=== PATIENT | female | born 1985 | race Caucasian/White ===

== ENCOUNTER 2018-06-21 16:25 | Emergency (ER) | payer OTHER, SELFPAY ==
[2018-06-21 16:26] VITALS: BP 187/98; PULSE 127; RESP 22; TEMP 36.8; O2SAT 100; BMI 52.3
--- NOTE | 2018-06-21 16:53 | US_ITS ---
STUDY: VENOUS DOPPLER ULTRASOUND - BILATERAL LOWER EXTREMITIES REASON FOR EXAM: Female, 33 years old. Swelling TECHNIQUE: Ultrasound evaluation of the deep vein system to include christopher-scale imaging and compression was performed. Christopher-scale imaging and Doppler sonographic evaluation, including duplex spectral analysis and qualitative color flow sonography, was performed. COMPARISON: None. FINDINGS: RIGHT LEG Common Femoral Vein: Normal compression, spontaneity and augmentation. Normal color Doppler. Common Femoral Vein/Greater Saphenous Junction: Normal compression, spontaneity and augmentation. Normal color Doppler. Deep Femoral Vein: Normal compression, spontaneity and augmentation. Normal color Doppler. Femoral Proximal: Normal compression, spontaneity and augmentation. Normal color Doppler. Femoral Middle: Normal compression, spontaneity and augmentation. Normal color Doppler. Femoral Distal: Normal compression, spontaneity and augmentation. Normal color Doppler. Popliteal Vein: Normal compression, spontaneity and augmentation. Normal color Doppler. Posterior Tibial Vein: Normal compression, spontaneity and augmentation. Normal color Doppler. Peroneal Vein: Normal compression, spontaneity and augmentation. Normal color Doppler. LEFT LEG Common Femoral Vein: Normal compression, spontaneity and augmentation. Normal color Doppler. Common Femoral Vein/Greater Saphenous Junction: Normal compression, spontaneity and augmentation. Normal color Doppler. Deep Femoral Vein: Normal compression, spontaneity and augmentation. Normal color Doppler. Femoral Proximal: Normal compression, spontaneity and augmentation. Normal color Doppler. Femoral Middle: Normal compression, spontaneity and augmentation. Normal color Doppler. Femoral Distal: Normal compression, spontaneity and augmentation. Normal color Doppler. Popliteal Vein: Normal compression, spontaneity and augmentation. Normal color Doppler. Posterior Tibial Vein: Normal compression, spontaneity and augmentation. Normal color Doppler. Peroneal Vein: Normal compression, spontaneity and augmentation. Normal color Doppler. US/Venous Duplex Imag/Mayo Extrem IMPRESSION: Normal venous Doppler ultrasound of the bilateral lower extremities. Electronically Signed: Wayne Toribio MD at 18:33 EDT , Service support ,
--- NOTE | 2018-06-21 16:53 | ED.DCSUM_ITS ---
- ER Visit Summary Date of Service: 06/21/18 Chief Complaint: Lower extremity swelling History of Present Illness: The patient is a 33 F who is 5 weeks 5 days who presents for bilateral lower extremity swelling for 4 days. Patient states 4 days ago she was moving. Afterwards she noticed swelling in both calves. Since then it is involved her ankles and feet. It is tense and aching. She denies any shortness of breath, chest pain, fever, dizziness or lightheadedness, vomiting. She does have nausea associated with the . She has no history of DVT, PE, travel or surgery. She has been doing fertility treatments to get and has been on exogenous hormones. Patient denies history of hypertension or diabetes. Physical Examination: Vital signs: afebrile, hypertensive and tachycardia, no hypoxia on room air General: well nourished, well developed, in no distress Skin: warm, dry, no rash, no pallor HEENT: normocephalic and atraumatic; PERRL, EOMI, moist mucous membranes Cardiovascular: Tachycardic rate and rhythm without murmurs, 2+ pulses all dista l extremities Respiratory: No increased work of breathing, lungs are clear to auscultation bilaterally, no rales, rhonchi or wheezing Abdominal: Abdomen is soft, nontender with normoactive bowel sounds, no guarding or rebound, no masses MSK: Moves all extremities, no deformities, normal strength, bilateral lower extremity tenderness below the knees, no pitting edema, symmetric size of the calves, DP pulses are 2+ and symmetric, no erythema, palpable cords, negative Homans sign. Neuro: Awake and alert, oriented ?4. No facial droop, sensation and motor function intact and symmetric Test Results: Abnormal Lab Results 06/21/18 06/21/18 06/21/18 17:50 17:50 17:50 WBC 11.3 H RBC 4.38 Hgb 11.6 L Hct 35.9 L MCV 82.0 MCH 26.5 L MCHC 32.3 RDW 14.9 H RDW Differential 43.6 Plt Count 237 MPV 9.4 Immature Gran % (Auto) 0.300 Neut % (Auto) 69.0 Lymph % (Auto) 24.5 [place] % (Auto) 4.9 Eos % (Auto) 1.1 Baso % (Auto) 0.2 Absolute Neuts (auto) 7.8 H Absolute Lymphs (auto) 2.78 Total Counted Not Reportable Sodium 139 Potassium 3.5 Chloride 107 Carbon Dioxide 22.0 Anion Gap 10 BUN 6 L Creatinine 0.66 Estim Creat Clear Calc 102.16 Est GFR (MDRD) Af Amer 135 Est GFR (MDRD) Non-Af 111 BUN/Creatinine Ratio 9.1 L Glucose 84 Calcium 8.8 Total Bilirubin 0.40 AST 18 ALT 22 Alkaline Phosphatase 48 Total Protein 7.1 Albumin 3.4 Globulin 3.7 Albumin/Globulin Ratio 0.9 HCG, Quant 5647 H Urine Color Urine Clarity Urine pH Ur Specific [place] Urine Protein Urine Glucose (UA) Urine Ketones Urine Occult Blood Urine Nitrite Urine Bilirubin Urine Urobilinogen Ur Leukocyte Esterase Urine RBC Urine WBC Ur Squamous Epith Cells Urine Bacteria Urine Mucus 06/21/18 18:39 WBC RBC Hgb Hct MCV MCH MCHC RDW RDW Differential Plt Count MPV Immature Gran % (Auto) Neut % (Auto) Lymph % (Auto) [place] % (Auto) Eos % (Auto) Baso % (Auto) Absolute Neuts (auto) Absolute Lymphs (auto) Total Counted Sodium Potassium Chloride Carbon Dioxide Anion Gap BUN Creatinine Estim Creat Clear Calc Est GFR (MDRD) Af Amer Est GFR (MDRD) Non-Af BUN/Creatinine Ratio Glucose Calcium Total Bilirubin AST ALT Alkaline Phosphatase Total Protein Albumin Globulin Albumin/Globulin Ratio HCG, Quant Urine Color Yellow Urine Clarity Cloudy Urine pH 6.5 Ur Specific [place] 1.020 Urine Protein 30 H Urine Glucose (UA) Normal Urine Ketones 150 H Urine Occult Blood 25 H Urine Nitrite Negative Urine Bilirubin Negative Urine Urobilinogen 1 H Ur Leukocyte Esterase 100 H Urine RBC 0-5 SEEN Urine WBC 0-5 SEEN Ur Squamous Epith Cells 25-50 SEEN Urine Bacteria 4+ Urine Mucus 3+ Clinical Impression(s) from Imaging Studies Venous Duplex 06/21/18 16:53 IMPRESSION: Normal venous Doppler ultrasound of the bilateral lower extremities. Electronically Signed: Wayne Toribio MD at 18:33 EDT , Service support , Emergency Department Course and Treatment: Given patient's edema and use of exogenous hormones, ultrasounds were performed of the lower extremities. She is only 5 weeks and thus it would be unlikely to have preeclampsia or to have increased risk of venous thromboembolism due to . Ultrasounds were negative for DVT. Patient's labs showed normal renal function, normal electrolytes, normal hepatic function. Urine was grossly contaminated with a large number of epithelial cells and did have bacteria, however this is most likely urogenital contamination, and that she was not started empirically on antibiotics for asymptomatic bacteriuria in . A culture is pending and she will be notified if there is concern for active urine infection. Beta hCG was at an expected range for her dating, and thus there is no suspicion at this time for a molar . Patient is to follow-up with her doctor to discuss her blood pressure, as it was significantly elevated when she first arrived, however she had just walked up a hill and has poor conditioning. At time of discharge it was 130/ S. Patient was discharged home and is to follow-up with primary care doctor and OB for further evaluation and management. Treatment Plan: [] Disposition: [] Impression: Bilateral lower extremity edema, first trimester This note was generated with [employer] dictation software. It may contain incorrect words, spelling, and punctuation that were not noted in review of the chart prior to signing ED Disposition - Plan for ED Patient: Disposition: Home or Assisted Living Chief Complaint: Edema Instructions: : Your First Trimester Changes, ED Leg Swelling Bilateral, ED Care Referrals: Elisa Childress MD [STAFF PHYSICIAN] - As soon as possible Palomo Saucedo III, MD [Primary Care Provider] - Additional Instructions: Please follow-up with your family doctor and Dr. Braxton to discuss your blood pressure today and the swelling in your legs. Drink plenty of fluids to stay hydrated and keep your legs elevated as much as possible. If you have any worsening of your condition or any new concerning symptoms, please return immediately to the emergency department for another evaluation.
[2018-06-21 17:30] VITALS: BP 141/94; PULSE 117; RESP 14; O2SAT 98
--- NOTE | 2018-06-21 17:52 | ED.RN ---
MULTIPLE ATTEMPTS NEEDED TO AQUIRE BLOOD. MADE AWARE. PT TAKEN TO ULTRASOUND. [id number]
[2018-06-21 17:57] LABS: Absolute Lymphocyte Count 2.78 X10^3/ul (0.83-4.51); Absolute Neutrophil Count 7.8 X10^3/uL (2.0-7.7); Basophil# 0.02 X10^3/uL; Basophil% 0.2 % (0-1); Eosinophil# 0.12 X10^3/uL; Eosinophils% 1.1 % (0-5); Hematocrit 35.9 % (37-47); Hemoglobin 11.6 g/dl (12.0-15.0); Lymphocyte # 2.78 X10^3/ul (4.0); Lymphocyte % 24.5 % (19-41); Mean Corp Hgb Conc 32.3 g/gl (32-36); Mean Corpuscular Hgb 26.5 pg (27.0-32.0); Mean Platelet Vol. 9.4 fl (6.2-12.0); Monocyte# 0.55 X10^3/uL; Monocyte% 4.9 % (0-10); Neutrophil # 7.84 X10^3/uL (2.7-7.7); POSITIVE COUNT NO; POSITIVE DIFFERENTIAL NO; POSITIVE MORPHOLOGY NO; Platelet Count 237 K/mm3 (150-450); RBC Distribution Width CV 14.9 % (11.6-14.6); RBC Distribution Width SD 43.6 fl (35.1-43.9); Red Blood Count 4.38 M/mm3 (4.2-5.4); White Blood Count 11.3 K/mm3 (4.4-11.0)
[2018-06-21 18:21] LABS: ALB/GLOB Ratio 0.9 RATIO (0.9-2.4); AST(SGOT) 18 U/L (15-37); Alanine Aminotransfer ALT/SGPT 22 U/L (13-56); Albumin, Serum 3.4 g/dL (3.2-5.0); Alkaline Phosphatase 48 U/L (45-117); Anion Gap 10 (5-15); BUN 6 mg/dL (7-18); BUN/Creat Ratio 9.1 RATIO (10-20); Calcium,Total 8.8 mg/dL (8.5-10.1); Chloride 107 mmol/L (98-107); Creatinine, Serum 0.66 mg/dL (0.55-1.02); EST Glomerular Filtration Rate 111 mL/min (>60); Est Glom Filt Rate - Afr Amer 135 mL/min (>60); Estimated Creatinine Clearance 102.16 ml/min; Globulin 3.7 g/dL (2.2-4.2); Glucose 84 mg/dL (74-106); Potassium 3.5 mmol/L (3.5-5.1); Protein, Total 7.1 g/dL (6.4-8.2); Sodium Level 139 mmol/L (136-145)
[2018-06-21 18:41] LABS: hCG Titer Quant., Serum 5647 mIU/mL (<9 non-preg)
[2018-06-21 18:51] LABS: Color, Urine Yellow (Yellow); Glucose, Dipstick Normal (Normal); Leukocyte Esterase-Dipstick 100 /ul (Negative); Nitrite-Dipstick Negative (Negative); Occult Blood-Urine 25 /ul (Negative); Protein-Dipstick 30 mg/dl (Negative); Urine Bilirubin Dipstick Negative (Negative); Urine Clarity Cloudy (Clear); Urine Urobilinogen 1 mg/dl (Normal); Urine pH 6.5 (5.0 - 8.0)
[2018-06-21 19:02] LABS: Ketone-Dipstick 150 mg/dl (Negative)
[2018-06-21 19:28] LABS: Bacteria 4+ /hpf (None Seen); Mucous, Urine 3+ /hpf (<or=2+); Red Blood Cells-Urine 0-5 SEEN /hpf (0-5); Squamous Epithelial Cells - UA 25-50 SEEN /hpf (5-10); White Blood Cells 0-5 SEEN /hpf (0-5)
--- NOTE | 2018-06-21 20:27 | ED.DEP ---
ED Disposition - Plan for ED Patient: Disposition: Home or Assisted Living Chief Complaint: Edema Instructions: ED Leg Swelling Bilateral, : Your First Trimester Changes, ED Care Referrals: Palomo Saucedo III, MD [Primary Care Provider] - Elisa Childress MD [STAFF PHYSICIAN] - As soon as possible Additional Instructions: Please follow-up with your family doctor and Dr. Braxton to discuss your blood pressure today and the swelling in your legs. Drink plenty of fluids to stay hydrated and keep your legs elevated as much as possible. If you have any worsening of your condition or any new concerning symptoms, please return immediately to the emergency department for another evaluation.
[2018-06-21 20:44] VITALS: BP 162/90; PULSE 110; RESP 14; O2SAT 98
== END 2018-06-21 20:45 | disposition home or self-care (01) ==
PROVIDERS: Emergency Provider Emergency Medicine; Family Provider Family Medicine; PCP Family Medicine
DX: O12.01 Gestational edema, first trimester (principal); O99.211 Obesity complicating pregnancy, first trimester; E66.9 Obesity, unspecified; Z3A.01 Less than 8 weeks gestation of pregnancy
CPT/HCPCS: 36415; 80053; 81001; 84702; 85025; 87086; 87088; 93970; 99283; A4216

== ENCOUNTER 2018-08-14 09:07 | Emergency (ER) | payer OTHER, SELFPAY ==
[2018-08-14 09:10] VITALS: BP 156/92; PULSE 102; RESP 18; TEMP 37.2; O2SAT 97; BMI 49.4
--- NOTE | 2018-08-14 09:26 | ED.VISSUMM ---
- ER Visit Summary Date of Service: 08/14/18 Chief Complaint: Nausea and vomiting History of Present Illness: The patient is a 33 F has medical history of hypothyroidism. Currently she is 13 weeks . . Due date 02/14/2019. -induced hypertension. She states for the last week she has had nausea and vomiting in the morning. She denies diarrhea or fever. No dysuria. The last 2 days she has been more frequently vomiting. Denies any abdominal pain. Physical Examination: Vital signs stable afebrile. Initial blood H EENT exam unremarkable. Neck nontender. Lungs clear to auscultation bilaterally. Heart regular rate and rhythm no murmur. Rate about 100. Abdomen is soft. Nontender. Nondistended. Normal bowel sounds. No peritoneal signs. Patient is moving all 4 extremities. They are neurovascularly intact. Calves are nontender without edema. Neurologically she is awake alert with no Test Results: None Emergency Department Course and Treatment: Treated with IV fluids and Zofran. P.o. challenge. Treatment Plan: Zofran at home for nausea. Follow-up with her VASCULAR SONOGRAPHER. Disposition: Discharge Impression: Nausea and vomiting 13 weeks . Hx of -induced hypertension This note was generated with [employer] dictation software. It may contain incorrect words, spelling, and punctuation that were not noted in review of the chart prior to signing ED Disposition - Plan for ED Patient: Chief Complaint: Nausea/Vomiting Referrals: Palomo Saucedo III, MD [Primary Care Provider] -
--- NOTE | 2018-08-14 09:29 | ED.DCSUM_ITS ---
- ER Visit Summary Date of Service: 08/14/18 Chief Complaint: Nausea and vomiting History of Present Illness: The patient is a 33 F has medical history of hypothyroidism. Currently she is 13 weeks . . Due date 02/14/2019. -induced hypertension. She states for the last week she has had nausea and vomiting in the morning. She denies diarrhea or fever. No dysuria. The last 2 days she has been more frequently vomiting. Denies any abdominal pain. Physical Examination: Vital signs stable afebrile. Initial blood H EENT exam unremarkable. Neck nontender. Lungs clear to auscultation bilaterally. Heart regular rate and rhythm no murmur. Rate about 100. Abdomen is soft. Nontender. Nondistended. Normal bowel sounds. No peritoneal signs. Patient is moving all 4 extremities. They are neurovascularly intact. Calves are nontender without edema. Neurologically she is awake alert with no Test Results: None Emergency Department Course and Treatment: Treated with IV fluids and Zofran. P.o. challenge. Treatment Plan: Zofran at home for nausea. Follow-up with her COMMUNITY DEVELOPMENT MANAGER. Disposition: Discharge Impression: Nausea and vomiting 13 weeks . Hx of -induced hypertension This note was generated with [employer] dictation software. It may contain incorrect words, spelling, and punctuation that were not noted in review of the chart prior to signing ED Disposition - Plan for ED Patient: Chief Complaint: Nausea/Vomiting Referrals: Palomo Saucedo III, MD [Primary Care Provider] -
--- NOTE | 2018-08-14 09:29 | ED.DEP ---
ED Disposition - Plan for ED Patient: Disposition: Home or Assisted Living Chief Complaint: Nausea/Vomiting Instructions: ED Nausea Vomiting Prescriptions: Ondansetron [Zofran Odt] 4 mg PO Q4H PRN PRN #14 tab.rapdis PRN Reason: Nausea Referrals: Palomo Saucedo III, MD [Primary Care Provider] - Additional Instructions: Plenty of fluids and rest. [place] diet and increase slowly. Zofran as needed for nausea. You may swallow it or hold it under your tongue and let it dissolve.
[2018-08-14] MEDS: 0.9% Normal Saline 1,000 ML 1000 ML IV (09:47)
[2018-08-14] MEDS: Ondansetron 4 MG/2 ML Vial IV ×2 (09:47→11:59)
[2018-08-14 11:04] VITALS: BP 132/76; PULSE 89; O2SAT 100
[2018-08-14 13:07] VITALS: RESP 15
== END 2018-08-14 13:07 | disposition home or self-care (01) ==
PROVIDERS: Emergency Provider Emergency Medicine; Family Provider Family Medicine; PCP Family Medicine
DX: O21.9 Vomiting of pregnancy, unspecified (principal); O99.281 Endocrine, nutritional and metabolic diseases complicating pregnancy, first trimester; E03.9 Hypothyroidism, unspecified; O10.911 Unspecified pre-existing hypertension complicating pregnancy, first trimester; Z3A.13 13 weeks gestation of pregnancy; Z79.899 Other long term (current) drug therapy
CPT/HCPCS: 96361; 96374; 96376; 99285; J7030; A4216; J2405

== ENCOUNTER → 2018-11-14 11:18 | Outpatient (CLI) | payer OTHER, SELFPAY ==
[2018-11-14 18:16] LABS: Chlamydia Trachomatis by PCR Negative (Negative); Neisserai gonorrhoeae by PCR Negative (Negative); Probe Check PASS; Sample Adequacy Control PASS; Specimen Processing Control PASS
== END ==
PROVIDERS: Visit Provider Obstetrics & Gynecology
DX: Z34.82 Encounter for supervision of other normal pregnancy, second trimester (principal); Z36.89 Encounter for other specified antenatal screening
CPT/HCPCS: 36415; 86900; 87491; 87591

== ENCOUNTER 2019-01-08 21:25 | Outpatient (CLI) | payer OTHER, SELFPAY ==
[2019-01-08 21:50] VITALS: BMI 48.4
[2019-01-08 22:41] LABS: Absolute Lymphocyte Count 3.26 X10^3/ul (0.83-4.51); Absolute Neutrophil Count 8.3 X10^3/uL (2.0-7.7); Basophil# 0.02 X10^3/uL; Basophil% 0.2 % (0-1); Eosinophils% 0.8 % (0-5); Hemoglobin 12.3 g/dl (12.0-15.0); Lymphocyte # 3.26 X10^3/ul (4.0); Lymphocyte % 26.5 % (19-41); Mean Corp Hgb Conc 33.2 g/gl (32-36); Mean Corpuscular Hgb 27.5 pg (27.0-32.0); Mean Corpuscular Volume 82.8 fL (81-99); Mean Platelet Vol. 10.7 fl (6.2-12.0); Monocyte# 0.58 X10^3/uL; Monocyte% 4.7 % (0-10); Neutrophil % 67.6 % (47-70); POSITIVE COUNT NO; POSITIVE DIFFERENTIAL NO; POSITIVE MORPHOLOGY NO; Platelet Count 232 K/mm3 (150-450); RBC Distribution Width CV 14.9 % (11.6-14.6); RBC Distribution Width SD 45.2 fl (35.1-43.9); Red Blood Count 4.47 M/mm3 (4.2-5.4); White Blood Count 12.3 K/mm3 (4.4-11.0)
[2019-01-08 23:10] LABS: ALB/GLOB Ratio 0.7 RATIO (0.9-2.4); AST(SGOT) 19 U/L (15-37); Alanine Aminotransfer ALT/SGPT 12 U/L (13-56); Albumin, Serum 2.6 g/dL (3.2-5.0); Alkaline Phosphatase 104 U/L (45-117); Anion Gap 7 (5-15); BUN 9 mg/dL (7-18); BUN/Creat Ratio 14.2 RATIO (10-20); Calcium,Total 8.7 mg/dL (8.5-10.1); Chloride 110 mmol/L (98-107); Creatinine, Serum 0.64 mg/dL (0.55-1.02); EST Glomerular Filtration Rate 115 mL/min (>60); Est Glom Filt Rate - Afr Amer 140 mL/min (>60); Estimated Creatinine Clearance 105.36 ml/min; Globulin 3.8 g/dL (2.2-4.2); Glucose 114 mg/dL (74-106); Potassium 4.3 mmol/L (3.5-5.1); Protein, Total 6.4 g/dL (6.4-8.2); Protein, Urine (Random) 21.5 mg/dL (<11.9); Protein:Creat Ratio 126 mg/g CRE (0-200); Sodium Level 137 mmol/L (136-145); Uric Acid 4.2 mg/dL (2.6-6.0)
[2019-01-08] MEDS: Labetalol 100 MG Tablet PO (23:28)
--- NOTE | 2019-01-12 12:39 | OB.TRI.NOTE ---
- Problem List (1) Chronic hypertension affecting Status: Chronic History of Present Illness Date of Service: 01/08/19 Was patient seen by the physician?: No Reason For Visit: ELEVATED BLOOD PRESSURE Date of Service: 01/08/19 Final BOOGIE: 02/19/19 Gestational age: 34 Weeks and 4 Days History of Present Illness: Presented to L&D with complaint of elevated BP at home of 184/116. Patient took dose of Labetolo 100mg PO and rechecked in an hour and decreased to 170/100. To L&D for evaluation. Upon arrival BP elevated. Denies any headaches, visual changes, scotoma, chest pain, SOB, RUQ abdominal pain, or contractions. Allergies amoxicillin [Amoxicillin] Allergy (Verified 01/08/19 21:51) Rash Iodinated Contrast- Oral and IV Dye [DYEE] Allergy (Verified 01/08/19 21:51) Anaphylaxis codeine Adverse Reaction (Verified 01/08/19 21:51) Upset Stomach erythromycin base [Erythromycin Base] Adverse Reaction (Verified 01/08/19 21:51) Vomiting Laboratory Studies: Laboratory Tests 01/08/19 01/08/19 01/08/19 Range/Units 22:30 22:30 22:30 WBC 12.3 H (4.4-11.0) K/mm3 RBC 4.47 (4.2-5.4) M/mm3 Hgb 12.3 (12.0-15.0) g/dl Hct 37.0 (37-47) % MCV 82.8 (81-99) fL MCH 27.5 (27.0-32.0) pg MCHC 33.2 (32-36) g/gl RDW 14.9 H (11.6-14.6) % RDW Differential 45.2 H (35.1-43.9) fl Plt Count 232 (150-450) K/mm3 MPV 10.7 (6.2-12.0) fl Immature Gran % (Auto) 0.200 (0.0-0.9) % Neut % (Auto) 67.6 (47-70) % Lymph % (Auto) 26.5 (19-41) % [place] % (Auto) 4.7 (0-10) % Eos % (Auto) 0.8 (0-5) % Baso % (Auto) 0.2 (0-1) % Absolute Neuts (auto) 8.3 H (2.0-7.7) X10^3/uL Absolute Lymphs (auto) 3.26 (0.83-4.51) X10^3/ul Total Counted Not Reportable Sodium 137 (136-145) mmol/L Potassium 4.3 (3.5-5.1) mmol/L Chloride 110 H (98-107) mmol/L Carbon Dioxide 20.0 L (21.0-32.0) mmol/L Anion Gap 7 (5-15) BUN 9 (7-18) mg/dL Creatinine 0.64 (0.55-1.02) mg/dL Estim Creat Clear Calc 105.36 ml/min Est GFR (MDRD) Af Amer 140 (>60) mL/min Est GFR (MDRD) Non-Af 115 (>60) mL/min BUN/Creatinine Ratio 14.2 (10-20) RATIO Glucose 114 H (74-106) mg/dL Uric Acid 4.2 (2.6-6.0) mg/dL Calcium 8.7 (8.5-10.1) mg/dL Total Bilirubin 0.20 (0.20-1.00) mg/dL AST 19 (15-37) U/L ALT 12 L (13-56) U/L Alkaline Phosphatase 104 (45-117) U/L Total Protein 6.4 (6.4-8.2) g/dL Albumin 2.6 L (3.2-5.0) g/dL Globulin 3.8 (2.2-4.2) g/dL Albumin/Globulin Ratio 0.7 L (0.9-2.4) RATIO U Random Total Protein 21.5 H (<11.9) mg/dL Urine Creatinine 171.00 (NO RANGE EST.) mg/dL Protein/Creatinin Ratio 126 (0-200) mg/g CRE NST - FHR Rate Baby A Baseline: 145 Variability:: Moderate Accelerations:: 15 x 15 Decelerations:: None FHR Category:: Category I Uterine Activity:: Uterine irriabiltiy. Impression/Plan P: 1) BP return to non severe range without intervention. Labetalol 100mg PO once given. 2) Pre-e labs normal. Reviewed signs of Pre-e 3) To follow up in am at office. Consulted and agreed with plan. To take BP in am and take morning dose.
== END 2019-01-09 | disposition home or self-care (01) ==
LOC: WPOUT 21:37 → WP 21:38
PROVIDERS: Advanced Practice Midwife; Family Provider Family Medicine; PCP Family Medicine; Referring Provider Obstetrics & Gynecology; Visit Provider Obstetrics & Gynecology
DX: O16.3 Unspecified maternal hypertension, third trimester (principal); Z3A.34 34 weeks gestation of pregnancy
CPT/HCPCS: 36415; 59025; 59050; 80053; 82570; 84156; 84550; 85025; 99218; G0378

== ENCOUNTER 2019-01-12 19:15 | Outpatient (CLI) | payer OTHER, SELFPAY ==
[2019-01-12 20:08] VITALS: BMI 47.8
[2019-01-12 20:14] LABS: Protein, Urine (Random) 18.7 mg/dL (<11.9); Protein:Creat Ratio 168 mg/g CRE (0-200)
[2019-01-12 20:24] LABS: Hematocrit 37.6 % (37-47); Hemoglobin 12.9 g/dl (12.0-15.0); Mean Corp Hgb Conc 34.3 g/gl (32-36); Mean Corpuscular Hgb 27.6 pg (27.0-32.0); Mean Corpuscular Volume 80.3 fL (81-99); Mean Platelet Vol. 11.1 fl (6.2-12.0); Platelet Count 299 K/mm3 (150-450); RBC Distribution Width CV 14.8 % (11.6-14.6); RBC Distribution Width SD 43.2 fl (35.1-43.9); Red Blood Count 4.68 M/mm3 (4.2-5.4); White Blood Count 12.4 K/mm3 (4.4-11.0)
[2019-01-12 20:26] LABS: Scan Indicated on CBC? Y/N NO
[2019-01-12 20:29] LABS: ALB/GLOB Ratio 0.7 RATIO (0.9-2.4); AST(SGOT) 35 U/L (15-37); Alanine Aminotransfer ALT/SGPT 14 U/L (13-56); Albumin, Serum 2.8 g/dL (3.2-5.0); Alkaline Phosphatase 111 U/L (45-117); Anion Gap 9 (5-15); BUN 10 mg/dL (7-18); BUN/Creat Ratio 16.3 RATIO (10-20); Calcium,Total 9.3 mg/dL (8.5-10.1); Chloride 105 mmol/L (98-107); Creatinine, Serum 0.62 mg/dL (0.55-1.02); EST Glomerular Filtration Rate 120 mL/min (>60); Est Glom Filt Rate - Afr Amer 145 mL/min (>60); Estimated Creatinine Clearance 108.76 ml/min; Globulin 4.1 g/dL (2.2-4.2); Glucose 96 mg/dL (74-106); Potassium 4.9 mmol/L (3.5-5.1); Protein, Total 6.9 g/dL (6.4-8.2); Sodium Level 134 mmol/L (136-145); Uric Acid 4.4 mg/dL (2.6-6.0)
--- NOTE | 2019-02-02 09:08 | OB.TRI.NOTE ---
History of Present Illness Date of Service: 01/12/19 Was patient seen by the physician?: No Reason For Visit: RULE OUT PRE E Allergies amoxicillin [Amoxicillin] Allergy (Verified 01/29/19 21:02) Rash Iodinated Contrast- Oral and IV Dye [DYEE] Allergy (Verified 01/29/19 21:02) Anaphylaxis codeine Adverse Reaction (Verified 01/29/19 21:02) Upset Stomach erythromycin base [Erythromycin Base] Adverse Reaction (Verified 01/29/19 21:02) Vomiting - Pertinent Past Medical History Medical History: Past Medical History (Last Updated 01/29/19 @ 16:24 by Elisa Childress MD) Obesity affecting in third trimester Laboratory Studies: Laboratory Tests 01/12/19 01/12/19 01/12/19 Range/Units 19:45 19:45 19:45 WBC 12.4 H (4.4-11.0) K/mm3 RBC 4.68 (4.2-5.4) M/mm3 Hgb 12.9 (12.0-15.0) g/dl Hct 37.6 (37-47) % MCV 80.3 L (81-99) fL MCH 27.6 (27.0-32.0) pg MCHC 34.3 (32-36) g/gl RDW 14.8 H (11.6-14.6) % RDW Differential 43.2 (35.1-43.9) fl Plt Count 299 (150-450) K/mm3 MPV 11.1 (6.2-12.0) fl Sodium 134 L (136-145) mmol/L Potassium 4.9 (3.5-5.1) mmol/L Chloride 105 (98-107) mmol/L Carbon Dioxide 20.0 L (21.0-32.0) mmol/L Anion Gap 9 (5-15) BUN 10 (7-18) mg/dL Creatinine 0.62 (0.55-1.02) mg/dL Estim Creat Clear Calc 108.76 ml/min Est GFR (MDRD) Af Amer 145 (>60) mL/min Est GFR (MDRD) Non-Af 120 (>60) mL/min BUN/Creatinine Ratio 16.3 (10-20) RATIO Glucose 96 (74-106) mg/dL Uric Acid 4.4 (2.6-6.0) mg/dL Calcium 9.3 (8.5-10.1) mg/dL Total Bilirubin 0.30 (0.20-1.00) mg/dL AST 35 (15-37) U/L ALT 14 (13-56) U/L Alkaline Phosphatase 111 (45-117) U/L Total Protein 6.9 (6.4-8.2) g/dL Albumin 2.8 L (3.2-5.0) g/dL Globulin 4.1 (2.2-4.2) g/dL Albumin/Globulin Ratio 0.7 L (0.9-2.4) RATIO U Random Total Protein 18.7 H (<11.9) mg/dL Urine Creatinine 111.00 (NO RANGE EST.) mg/dL Protein/Creatinin Ratio 168 (0-200) mg/g CRE Impression/Plan NST for chronic hypertension in
== END 2019-01-12 21:20 | disposition home or self-care (01) ==
LOC: WPOUT 19:26 → WP 19:26
PROVIDERS: Family Provider Family Medicine; PCP Family Medicine; Referring Provider Obstetrics & Gynecology; Visit Provider Obstetrics & Gynecology
DX: O16.9 Unspecified maternal hypertension, unspecified trimester (principal); Z3A.00 Weeks of gestation of pregnancy not specified
CPT/HCPCS: 36415; 59025; 59050; 80053; 82570; 84156; 84550; 85027; 99218; G0378

== ENCOUNTER 2019-01-13 11:37 | Outpatient (CLI) | payer OTHER, SELFPAY ==
[2019-01-12 20:08] VITALS: BMI 47.8
[2019-01-13 11:41] VITALS: BMI 47.6
[2019-01-13] MEDS: Betamethasone/Betamethasone 30 MG/5 ML Vial 12 MG IM (12:05)
--- NOTE | 2019-01-13 12:14 | NURSING ---
here for second celestone 12 mg im injection as ordered. BP 129/80 P 91 R 16 T 98.8 FHR 145
--- NOTE | 2019-01-16 07:51 | OB.TRI.NOTE ---
History of Present Illness Date of Service: 01/13/19 Was patient seen by the physician?: No Reason For Visit: INJECTION Date of Service: 01/13/19 Allergies amoxicillin [Amoxicillin] Allergy (Verified 01/13/19 11:45) Rash Iodinated Contrast- Oral and IV Dye [DYEE] Allergy (Verified 01/13/19 11:45) Anaphylaxis codeine Adverse Reaction (Verified 01/13/19 11:45) Upset Stomach erythromycin base [Erythromycin Base] Adverse Reaction (Verified 01/13/19 11:45) Vomiting Impression/Plan 33yo here for second dose of celestone- Uncontrolled CHTN - gestation 1) celestone IM #2 injection given
== END 2019-01-13 12:10 | disposition home or self-care (01) ==
LOC: WPOUT 11:37 → WP 11:38
PROVIDERS: Family Provider Family Medicine; PCP Family Medicine; Referring Provider Obstetrics & Gynecology; Visit Provider Obstetrics & Gynecology
DX: O16.9 Unspecified maternal hypertension, unspecified trimester (principal); Z3A.00 Weeks of gestation of pregnancy not specified
CPT/HCPCS: 96372; 99218; G0378; J0702

== ENCOUNTER 2019-01-17 05:05 | Outpatient (CLI) | payer OTHER, SELFPAY ==
[2019-01-17 05:33] VITALS: BMI 48.9
[2019-01-17 06:31] LABS: Protein, Urine (Random) 38.9 mg/dL (<11.9); Protein:Creat Ratio 173 mg/g CRE (0-200)
[2019-01-17 06:50] LABS: Hematocrit 36.6 % (37-47); Hemoglobin 12.4 g/dl (12.0-15.0); Mean Corp Hgb Conc 33.9 g/gl (32-36); Mean Corpuscular Volume 79.7 fL (81-99); Mean Platelet Vol. 11.1 fl (6.2-12.0); Platelet Count 247 K/mm3 (150-450); RBC Distribution Width CV 14.7 % (11.6-14.6); RBC Distribution Width SD 41.8 fl (35.1-43.9); Red Blood Count 4.59 M/mm3 (4.2-5.4); White Blood Count 11.7 K/mm3 (4.4-11.0)
[2019-01-17 06:52] LABS: Scan Indicated on CBC? Y/N NO
[2019-01-17 06:56] LABS: International Normalized Ratio 0.9; Prothrombin Time (Protime)PT. 11.9 SECONDS (11.7-14.9)
[2019-01-17 06:57] LABS: Partial Thromboplast Time 24.7 Seconds (24.1-36.2)
[2019-01-17 07:02] LABS: AST(SGOT) 10 U/L (15-37); Alanine Aminotransfer ALT/SGPT 14 U/L (13-56); Creatinine, Serum 0.62 mg/dL (0.55-1.02); EST Glomerular Filtration Rate 118 mL/min (>60); Est Glom Filt Rate - Afr Amer 143 mL/min (>60); Estimated Creatinine Clearance 103.98 ml/min; Uric Acid 5.2 mg/dL (2.6-6.0)
--- NOTE | 2019-01-18 08:47 | OB.TRI.NOTE ---
History of Present Illness Date of Service: 01/17/19 Was patient seen by the physician?: No Reason For Visit: r/o PRE E, elevated BPs Date of Service: 01/17/19 Allergies amoxicillin [Amoxicillin] Allergy (Verified 01/17/19 05:23) Rash Iodinated Contrast- Oral and IV Dye [DYEE] Allergy (Verified 01/13/19 11:45) Anaphylaxis codeine Adverse Reaction (Verified 01/13/19 11:45) Upset Stomach erythromycin base [Erythromycin Base] Adverse Reaction (Verified 01/13/19 11:45) Vomiting Laboratory Studies: Laboratory Tests 01/17/19 01/17/19 01/17/19 Range/Units 06:35 06:35 06:35 WBC 11.7 H (4.4-11.0) K/mm3 RBC 4.59 (4.2-5.4) M/mm3 Hgb 12.4 (12.0-15.0) g/dl Hct 36.6 L (37-47) % MCV 79.7 L (81-99) fL MCH 27.0 (27.0-32.0) pg MCHC 33.9 (32-36) g/gl RDW 14.7 H (11.6-14.6) % RDW Differential 41.8 (35.1-43.9) fl Plt Count 247 (150-450) K/mm3 MPV 11.1 (6.2-12.0) fl PT 11.9 (11.7-14.9) SECONDS INR 0.9 APTT 24.7 (24.1-36.2) Seconds Creatinine 0.62 (0.55-1.02) mg/dL Estim Creat Clear Calc 103.98 ml/min Est GFR (MDRD) Af Amer 143 (>60) mL/min Est GFR (MDRD) Non-Af 118 (>60) mL/min Uric Acid 5.2 (2.6-6.0) mg/dL AST 10 L (15-37) U/L ALT 14 (13-56) U/L U Random Total Protein (<11.9) mg/dL Urine Creatinine (NO RANGE EST.) mg/dL Protein/Creatinin Ratio (0-200) mg/g CRE 01/17/19 Range/Units 06:00 WBC (4.4-11.0) K/mm3 RBC (4.2-5.4) M/mm3 Hgb (12.0-15.0) g/dl Hct (37-47) % MCV (81-99) fL MCH (27.0-32.0) pg MCHC (32-36) g/gl RDW (11.6-14.6) % RDW Differential (35.1-43.9) fl Plt Count (150-450) K/mm3 MPV (6.2-12.0) fl PT (11.7-14.9) SECONDS INR APTT (24.1-36.2) Seconds Creatinine (0.55-1.02) mg/dL Estim Creat Clear Calc ml/min Est GFR (MDRD) Af Amer (>60) mL/min Est GFR (MDRD) Non-Af (>60) mL/min Uric Acid (2.6-6.0) mg/dL AST (15-37) U/L ALT (13-56) U/L U Random Total Protein 38.9 H (<11.9) mg/dL Urine Creatinine 225.00 (NO RANGE EST.) mg/dL Protein/Creatinin Ratio 173 (0-200) mg/g CRE NST - FHR Rate Baby A Baseline: 140 Variability:: Moderate Accelerations:: 15 x 15 Decelerations:: None NST Reactive:: Yes FHR Category:: Category I Uterine Activity:: irregular Impression/Plan 33yo @35.2 wks CHTN, without pre E 1) PRE E labs wnl 2) Follow up in office as scheduled today
== END 2019-01-17 07:30 | disposition home or self-care (01) ==
LOC: WPOUT 05:14 → WP 05:15
PROVIDERS: Family Provider Family Medicine; PCP Family Medicine; Visit Provider Obstetrics & Gynecology
DX: O16.3 Unspecified maternal hypertension, third trimester (principal); Z3A.35 35 weeks gestation of pregnancy
CPT/HCPCS: 36415; 59025; 59050; 82565; 82570; 84156; 84450; 84460; 84550; 85027; 85610; 85730; 99218; G0378

== ENCOUNTER 2019-01-28 10:20 | Outpatient (CLI) | payer OTHER, SELFPAY ==
[2019-01-28 10:59] LABS: Hemoglobin 12.6 g/dl (12.0-15.0); Mean Corp Hgb Conc 34.1 g/gl (32-36); Mean Corpuscular Hgb 27.2 pg (27.0-32.0); Mean Corpuscular Volume 79.9 fL (81-99); Mean Platelet Vol. 11.6 fl (6.2-12.0); Platelet Count 231 K/mm3 (150-450); RBC Distribution Width CV 14.9 % (11.6-14.6); RBC Distribution Width SD 42.8 fl (35.1-43.9); Red Blood Count 4.63 M/mm3 (4.2-5.4); White Blood Count 10.7 K/mm3 (4.4-11.0)
[2019-01-28 11:00] LABS: Scan Indicated on CBC? Y/N NO
[2019-01-28 11:13] LABS: AST(SGOT) 10 U/L (15-37); Alanine Aminotransfer ALT/SGPT 10 U/L (13-56); Creatinine, Serum 0.56 mg/dL (0.55-1.02); EST Glomerular Filtration Rate 134 mL/min (>60); Est Glom Filt Rate - Afr Amer 162 mL/min (>60); Protein, Urine (Random) 35.5 mg/dL (<11.9); Protein:Creat Ratio 152 mg/g CRE (0-200)
[2019-01-28 11:26] VITALS: BMI 48.9
--- NOTE | 2019-01-31 07:56 | OB.TRI.NOTE ---
- Problem List (1) 36 weeks gestation of Status: Acute (2) Malaise Status: Acute (3) Nausea & vomiting Status: Acute (4) Headache Status: Acute (5) Chronic hypertension affecting Status: Chronic History of Present Illness Date of Service: 01/28/19 Was patient seen by the physician?: No Reason For Visit: R/O [facility] Date of Service: 01/28/19 Final BOOGIE: 02/19/19 Gestational age: 37 Weeks and 2 Days History of Present Illness: who presented at 36 weeks for rule out pre-e. H/o cHTN on labetalol. +Mild RODRÍGUEZ that she did not take anything for. +Malaise and emesis after taking her morning Labetalol. No vision changes or RUQ pain. No ctx, vb, lof. +FM Allergies amoxicillin [Amoxicillin] Allergy (Verified 01/29/19 21:02) Rash Iodinated Contrast- Oral and IV Dye [DYEE] Allergy (Verified 01/29/19 21:02) Anaphylaxis codeine Adverse Reaction (Verified 01/29/19 21:02) Upset Stomach erythromycin base [Erythromycin Base] Adverse Reaction (Verified 01/29/19 21:02) Vomiting - Pertinent Past Medical History Medical History: Past Medical History (Last Updated 01/29/19 @ 16:24 by Elisa Childress MD) Obesity affecting in third trimester Laboratory Studies: Laboratory Tests 01/28/19 01/28/19 01/28/19 Range/Units 10:45 10:45 10:45 WBC 10.7 (4.4-11.0) K/mm3 RBC 4.63 (4.2-5.4) M/mm3 Hgb 12.6 (12.0-15.0) g/dl Hct 37.0 (37-47) % MCV 79.9 L (81-99) fL MCH 27.2 (27.0-32.0) pg MCHC 34.1 (32-36) g/gl RDW 14.9 H (11.6-14.6) % RDW Differential 42.8 (35.1-43.9) fl Plt Count 231 (150-450) K/mm3 MPV 11.6 (6.2-12.0) fl Creatinine 0.56 (0.55-1.02) mg/dL Est GFR (MDRD) Af Amer 162 (>60) mL/min Est GFR (MDRD) Non-Af 134 (>60) mL/min Uric Acid 5.0 (2.6-6.0) mg/dL AST 10 L (15-37) U/L ALT 10 L (13-56) U/L U Random Total Protein 35.5 H (<11.9) mg/dL Urine Creatinine 234.00 (NO RANGE EST.) mg/dL Protein/Creatinin Ratio 152 (0-200) mg/g CRE NST - FHR Rate Baby A NST Reactive:: Yes FHR Category:: Category I Impression/Plan Pre-e labs WNL D/c home Scheduled IOL tomorrow
== END 2019-01-28 11:47 | disposition home or self-care (01) ==
LOC: WPOUT 10:26 → WP 12:15
PROVIDERS: Family Provider Family Medicine; PCP Family Medicine; Visit Provider Obstetrics & Gynecology
DX: O10.913 Unspecified pre-existing hypertension complicating pregnancy, third trimester (principal); Z3A.37 37 weeks gestation of pregnancy; E66.9 Obesity, unspecified; O99.213 Obesity complicating pregnancy, third trimester
CPT/HCPCS: 36415; 59025; 59050; 82565; 82570; 84156; 84450; 84460; 84550; 85027; 99218; G0378

== ENCOUNTER 2019-01-29 18:50 | Inpatient (IN) | payer OTHER, SELFPAY ==
[2019-01-28 11:26] VITALS: BMI 48.9
--- NOTE | 2019-01-29 16:21 | PCM.HP.OB ---
- Problem List (1) Hypothyroid in , antepartum Status: Acute History Date of Admission: 01/29/19 Final BOOGIE: 02/19/19 Gestational age: 37 Weeks and 0 Days History of this : This is a 33 year-old, G 1P0 @ 37 wks- with Uncontrolled Chronic HTN, obesity, Hypothyroidism. pt conceived with IUI. pt was dx early first trimester with HTN and was started on labetalol- pt now on Labetalol 400mg TID with some severe range BPs at home. pt has occasional intermittent RODRÍGUEZ- no otherwise is asymptomatic. PREE labs remain normal. Pt was counseled on IOL at 37 wks due to difficulty controlling BP. Most recent Growth ultrasound on 01/17/19- EFW 5lb 12 oz which is 45%. pt was getting weekly NSTs which have been reassuring. Allergies amoxicillin [Amoxicillin] Allergy (Verified 01/28/19 11:27) Rash Iodinated Contrast- Oral and IV Dye [DYEE] Allergy (Verified 01/28/19 11:27) Anaphylaxis codeine Adverse Reaction (Verified 01/28/19 11:27) Upset Stomach erythromycin base [Erythromycin Base] Adverse Reaction (Verified 01/28/19 11:27) Vomiting Home Medications: Home Medications Citalopram [Celexa] 20 mg PO DAILY 01/24/17 Levothyroxine [Synthroid] 75 mcg PO DAILY 06/21/18 Labetalol [Trandate] 400 mg PO TID 08/14/18 Vits [Prenatabs FA] 1 tablet PO DAILY 01/08/19 Acetaminophen [Tylenol Extra Strength] 500 mg PO X1 PRN 01/12/19 Tums 1 tab.chew PO PRN PRN 01/12/19 Smoking Status: Never smoker Alcohol: None Number of Fetus(es): 1 History Past Pregnancies: Past Pregnancies Delivery Date Name GA/Weeks Outcome Route Weight Gender Labor Length Anesthesia Delivery Location Provider FOB Labs: A+, RPR Neg, HIV neg, HEP B neg, GBS Neg, Expected Delivery Method: Spontaneous Vaginal Physical Exam General: Alert, Oriented x3 Abdomen: Non Tender, Gravid Neurological: Cranial nerves II-XII grossly intact DELIVERY PROFESSIONAL: Normal external genitalia Estimated gestational size: Appropriate for gestational size Presentation: Cephalic Cervix Dilation (cm): 0 Station: -2 Effacement (%): 50 Assessment/Plan All Active Problems Hypothyroid in , antepartum (Acute) This is a 33 year-old, @ 37 wks, CHTN - uncontrolled here for IOL 1) Admit to L&D 2) exam performed on 01/29/19 and consent for IOL obtained at that office visit 3) CYTOTEC per vagina- nursing staff to place 4) continue PO labetalol will institute HTN protocol if severe pressures 5) monitor FHR/TOCO 6) anticipate
[2019-01-29 21:05] VITALS: BMI 49.4
[2019-01-29] MEDS: Lactated Ringers 1,000 ML 50 ML IV (21:08)
[2019-01-29 21:22] LABS: Absolute Lymphocyte Count 3.12 X10^3/ul (0.83-4.51); Basophil# 0.02 X10^3/uL; Basophil% 0.2 % (0-1); Eosinophil# 0.05 X10^3/uL; Eosinophils% 0.4 % (0-5); Hematocrit 36.9 % (37-47); Hemoglobin 12.4 g/dl (12.0-15.0); Lymphocyte # 3.12 X10^3/ul (4.0); Lymphocyte % 26.6 % (19-41); Mean Corp Hgb Conc 33.6 g/gl (32-36); Mean Corpuscular Hgb 27.3 pg (27.0-32.0); Mean Corpuscular Volume 81.3 fL (81-99); Monocyte% 4.3 % (0-10); Neutrophil % 68.2 % (47-70); Platelet Count 224 K/mm3 (150-450); RBC Distribution Width SD 43.9 fl (35.1-43.9); Red Blood Count 4.54 M/mm3 (4.2-5.4); White Blood Count 11.7 K/mm3 (4.4-11.0)
[2019-01-29 21:24] LABS: POSITIVE COUNT NO; POSITIVE DIFFERENTIAL NO; POSITIVE MORPHOLOGY NO
[2019-01-29] MEDS: Mag Hydrox/Al Hydrox/Simeth 30 ML UDC PO (21:26)
[2019-01-29] MEDS: Labetalol 200 MG Tablet 400 MG PO (22:01)
[2019-01-30] VITALS (24 sets, daily range): BP systolic 101–168; BP diastolic 56–95; PULSE 74–82; RESP 16–18; TEMP 36.1–36.8; O2SAT 95–100
[2019-01-30] MEDS: 0.9% Saline Lock 10 ML Syringe IV (01:17)
[2019-01-30] MEDS: Acetaminophen 325 MG Tablet PO (01:28)
[2019-01-30] MEDS: Ondansetron 4 MG/2 ML Vial IV ×2 (02:27→06:28)
[2019-01-30] MEDS: Citalopram 20 MG Tablet PO (03:37)
[2019-01-30] MEDS: Nalbuphine 10 MG/ML Ampul IV (03:43)
[2019-01-30] MEDS: Labetalol 200 MG Tablet 400 MG PO (06:29)
[2019-01-30] MEDS: Lactated Ringers 1,000 ML 50 ML IV (07:51)
[2019-01-30] MEDS: CHLORHEXIDINE GLUC 2% CLOTH 1 EACH TOWELETTE TOPICAL (08:00)
[2019-01-30] MEDS: Sodium Citrate/Citric Acid 30 ML UDC PO (08:04)
[2019-01-30] MEDS: Cefazolin 2 GM in 0.9% Normal Saline 100 ML IV (08:05)
[2019-01-30 08:09] LABS: Hematocrit 37.8 % (37-47); Hemoglobin 12.8 g/dl (12.0-15.0); Mean Corp Hgb Conc 33.9 g/gl (32-36); Mean Corpuscular Hgb 27.5 pg (27.0-32.0); Mean Corpuscular Volume 81.3 fL (81-99); Mean Platelet Vol. 11.3 fl (6.2-12.0); Platelet Count 161 K/mm3 (150-450); RBC Distribution Width CV 14.9 % (11.6-14.6); RBC Distribution Width SD 43.5 fl (35.1-43.9); Red Blood Count 4.65 M/mm3 (4.2-5.4); Scan Indicated on CBC? Y/N NO; White Blood Count 12.5 K/mm3 (4.4-11.0)
[2019-01-30] MEDS: Magnesium Sulfate 20 GM/500 ML BAG IV ×2 (08:17→18:16)
[2019-01-30] MEDS: Oxytocin 30 units/NS 500 ml 30 UNITS/500 ML IV.SOLN 167 UNITS IV (08:50)
[2019-01-30] MEDS: Ketorolac 30 MG/ML Syringe IV ×3 (09:38→22:21)
--- NOTE | 2019-01-30 09:54 | PCM.OPRPT ---
Report of Operation Date of Procedure: 01/30/19 Pre-Operative Diagnosis: (1) Chronic hypertension with superimposed preeclampsia (2) Inability of fetus to tolerate labor Post-Operative Diagnosis: (2) Same Surgery/Procedure Performed:: Low transverse section via pfannensteil skin incision Description of Surgical Findings:: normal maternal uterus & adnexa tire technician: Lucy Carvajal Type of Anesthesia:: Spinal Specimen's removed: placenta Drains: chatman Estimated Blood Loss (mL): 600ml Fluids Replaced: 700ml Delivery Classification: SULAIMAN Final BOOGIE: 02/19/19 Gestational age: 37 Weeks and 1 Days Indications: See diagnoses Description of Procedure: Patient taken to OR where spinal anesthesia was placed. She was prepped and draped in normal sterile fashion in a dorsal lithotomy position with a leftward tilt. After ensuring adequacy of anesthesia the Pfannensteil skin incision was made and carried through to the underlying fascia with a bovie. The fascia was incised in the midline and carried laterally with the Pena scissors. The rectus muscles were in the midline and the peritoneum was entered bluntly. The bladder flap was dissected down carefully with the Metzenbaum scissors and blunt dissection. The uterus was incised in a transverse fashion and then incision extended with cephalocaudad traction. The fetus was vertex and the head was brought to the incision in the flexed position. With good fundal pressure the head easily delivered. Shoulders and body easily followed. The 3VC cord was clamped and cut the handed off to the waiting RN. The placenta was delivered w/ gentle traction and fundal massage and the uterus was exteriorized and cleared of all clots and debris. The uterine incision was closed with 1 vicryl suture in a running locked fashion. A second imbricating layer of monocryl was placed. The uterus was returned to the peritoneal cavity. The pelvis was irrigated & then cleared of all clots and debris. A stable hematoma was noted & observed on the right side of the patient's incision. The uterine incision was reexamined and found to be hemostatic. Some thomas was placed over the uterine incision due to the denuded areas. The parietal peritoneum was reapproximated with running 1 vicryl suture. The fascia was closed with looped PDS suture in a running standard fashion. The subcutaneous tissue was examined & any bleeding bovie cauterized. The subcutaneous tissue was reapproximated with 3-0 vicryl suture. The skin was closed in a subcuticular fashion by the ORTHOPEDIC RADIOLOGIC TECHNOLOGIST with me present in the labor and delivery suite. I performed the remainder of the procedure w/ assistance. Amniotic Membrane Rupture Type: Artificial Amniotic Fluid Description: Lightly stained meconium Placenta [facility]position[facility] Drain: Chatman to straight drain Fluids Replaced: 700ml Cord Entanglement: None Cord Vessel Description: 3 Vessels Infant Gender: Female - weight 5-6 (1 minute): 7 (5 minute): 8 Delayed cord clamping: No Pre-op Antibiotic Given: - - Ancef 3g IV and Azithromycin 500mg IV - Admit VTE Documentation VTE Present on Admission: Yes VTE Mechan Device Prophylaxis: SCD's
[2019-01-30] MEDS: Lactated Ringers 1,000 ML 100 ML IV (18:14)
--- NOTE | 2019-01-30 22:35 | NURSING ---
SaO2 alarming low, when this RN entered room SaO2 91%. Pt awake and states she was drifting off to sleep and very tired. 2L O2 applied via NC, SaO2 now 99%.
[2019-01-31] VITALS (13 sets, daily range): BP systolic 112–156; BP diastolic 56–96; PULSE 83–93; RESP 14–18; TEMP 36.1–36.9; O2SAT 92–100
[2019-01-31] MEDS: Ketorolac 30 MG/ML Syringe IV (04:03)
[2019-01-31 04:58] LABS: Hematocrit 34.5 % (37-47); Hemoglobin 11.6 g/dl (12.0-15.0); Mean Corp Hgb Conc 33.6 g/gl (32-36); Mean Corpuscular Hgb 27.6 pg (27.0-32.0); Mean Corpuscular Volume 81.9 fL (81-99); Mean Platelet Vol. 10.5 fl (6.2-12.0); Platelet Count 173 K/mm3 (150-450); RBC Distribution Width CV 15.2 % (11.6-14.6); RBC Distribution Width SD 45.1 fl (35.1-43.9); Red Blood Count 4.21 M/mm3 (4.2-5.4); White Blood Count 10.8 K/mm3 (4.4-11.0)
[2019-01-31 05:05] LABS: Scan Indicated on CBC? Y/N NO
[2019-01-31] MEDS: Magnesium Sulfate 20 GM/500 ML BAG IV (06:03)
--- NOTE | 2019-01-31 06:17 | PCM.PN.OB ---
Subjective: Denies complaints. - Physical Exam General: Alert, Oriented x3 Abdomen: Soft, Non Tender, Non-Distended - ff mid & near umbilicus - patient in wheelchair with baby in SCN; incision - bandage intact Extremities: No Calf Tenderness, Edema - 1+ bilaterally Vital Signs Temp Pulse Resp BP Pulse Ox 97.3 F L 85 18 118/74 100 01/31/19 04:00 01/31/19 04:00 01/31/19 04:00 01/31/19 04:00 01/31/19 04:00 Oxygen Flow Rate (L/min) 2 Oxygen Delivery Method Room Air Weight: 270 lb 9.6 oz Body Mass Index (BMI) 49.4 Intake and Output for Last 24 Hours 01/29/19 01/30/19 01/31/19 23:59 23:59 23:59 Intake Total 2606 / 2606 500 / 500 Output Total 1575 / 1575 750 / 750 Balance 1031 / 1031 -250 / -250 Laboratory Tests Past 24 Hrs 01/30/19 01/31/19 08:00 04:30 WBC 12.5 H 10.8 RBC 4.65 4.21 Hgb 12.8 11.6 L Hct 37.8 34.5 L MCV 81.3 81.9 MCH 27.5 27.6 MCHC 33.9 33.6 RDW 14.9 H 15.2 H RDW Differential 43.5 45.1 H Plt Count 161 173 MPV 11.3 10.5 Medical Necessity - Tobacco Use Smoking Status: Never smoker Assessment/Plan All Active Problems (Last Updated 01/29/19 @ 16:24 by Elisa Childress MD) Hypothyroid in , antepartum (Acute) POD#1 Chtn & preE - on magnesium for 24hrs PP. BP's normal at this time so labetalol stopped. Will monitor BP's. ID - AF, no signs infection. Heme - HDS, normal PP Hb. GI - ADAT today. - d/c chatman later today, adequate UOP. Mood - continue celexa. Hypothyroid - contie synthroid. Routine care
[2019-01-31] MEDS: Levothyroxine 75 MCG Tablet PO (07:30)
[2019-01-31] MEDS: Senna/Docusate Sodium 1 Tablet PO (07:30)
[2019-01-31] MEDS: Citalopram 20 MG Tablet PO (11:09)
[2019-01-31] MEDS: Ketorolac 10 MG Tablet PO ×3 (11:09→21:58)
--- NOTE | 2019-01-31 11:42 | NURSING ---
information regarding chatman insertion gathered from the Operative record for this documentation
[2019-01-31] MEDS: Labetalol 200 MG Tablet PO ×2 (15:56→21:58)
[2019-02-01] VITALS (24 sets, daily range): BP systolic 139–190; BP diastolic 78–116; PULSE 69–100; RESP 16–18; TEMP 35.9–36.8; O2SAT 96
[2019-02-01] MEDS: Ketorolac 10 MG Tablet PO (03:53)
[2019-02-01] MEDS: Labetalol 200 MG Tablet PO ×2 (06:12→10:31)
[2019-02-01] MEDS: Levothyroxine 75 MCG Tablet PO (06:12)
[2019-02-01] MEDS: Senna/Docusate Sodium 1 Tablet PO (06:12)
[2019-02-01] MEDS: Citalopram 20 MG Tablet PO (10:31)
--- NOTE | 2019-02-01 10:57 | PCM.PN.OB ---
Subjective: pt seen at bedside, doing well. pt reports good pain control. lochia mild. Denies CP, SOB, Dizziness. Denies RODRÍGUEZ, blurry vision or epigastric pain. - Physical Exam General: Alert, Oriented x3 Abdomen: Soft, Non-Distended, - - fundus firm. incision site dry and intact Extremities: No Calf Tenderness Vital Signs Temp Pulse Resp BP Pulse Ox 97.9 F 89 18 154/87 H 96 02/01/19 08:30 02/01/19 08:30 02/01/19 08:30 02/01/19 08:30 02/01/19 02:00 Oxygen Flow Rate (L/min) 2 Oxygen Delivery Method Room Air Weight: 122.742 kg Body Mass Index (BMI) 49.4 Intake and Output for Last 24 Hours 01/30/19 01/31/19 02/01/19 23:59 23:59 23:59 Intake Total 2606 / 2606 4002 / 4002 Output Total 1575 / 1575 2500 / 2500 Balance 1031 / 1031 1502 / 1502 Medical Necessity - Tobacco Use Smoking Status: Never smoker Assessment/Plan All Active Problems (Last Updated 01/29/19 @ 16:24 by Elisa Childress MD) Hypothyroid in , antepartum (Acute) 36 weeks gestation of (Acute) Malaise (Acute) Nausea & vomiting (Acute) Headache (Acute) POD#2, doing well routine care Labetalol- 200mg PO given x 1 now for elevated BP. Restart Labetalol 400mg TID ambulation pain mgmt
[2019-02-01] MEDS: Acetaminophen 500 MG Tablet 1000 MG PO (14:07)
[2019-02-01] MEDS: Labetalol 200 MG Tablet 400 MG PO ×2 (14:44→21:19)
--- NOTE | 2019-02-01 17:08 | EKG12_ITS ---
Test Reason : Blood Pressure : / mmHG Vent. Rate : 089 BPM Atrial Rate : 089 BPM P-R Int : 144 ms QRS Dur : 098 ms QT Int : 382 ms P-R-T Axes : 030 012 011 degrees QTc Int : 464 ms Normal sinus rhythm Normal ECG Confirmed by SHIVANI LINARES, TERE ([id number]), dictionary editor SONA CARRERA ([id number]) on 02/05/2019 4:28:48 PM Referred By: Elisa Childress Confirmed By:TERE PARRISH MD
[2019-02-01] MEDS: NIFEdipine 30 MG Tablet PO (17:13)
--- NOTE | 2019-02-01 17:16 | PCM.PROGNOTE ---
Subjective: Chief complaint: Medical consultation for uncontrolled hypertension. This patient underwent urgent section for preeclampsia on January 30, 2019 and she has been having difficulties controlling her blood pressure. At this time, she has no symptoms. She denied chest pain or shortness of breath. She denied headache, blurred vision. She denies dizziness or lightheadedness. She was on IV labetalol and and today, it was discontinued and was started on oral labetalol. Her blood pressure was up to 170 systolic. She is asymptomatic. - Physical Exam General: Alert, Cooperative HEENT: Atraumatic, PERRLA, EOMI, Normocephalic Oral: Moist Mucosa, No Gingival or Mucosal Lesions/ Ulcerations Neck: Supple, No JVD, Negative Carotid Bruits, Trachea Midline, Thyroid Normal Size and Texture Lungs: Clear to auscultation, Normal air movement, No rhonchi, No wheeze, No rales Cardiovascular: Regular rate, Regular Rhythm, Normal S1, Normal S2, No murmurs, PMI Normal Abdomen: Bowel Sounds Present, Soft, Non Tender, Non-Distended, No Hepato-splenomegaly, Obese Extremities: No clubbing, No cyanosis, Edema - Trace edema. Skin: No rashes, No breakdown Lymphatic: No Cervical, Supraclavicular, or Inguinal Adenopathy Neurological: Cranial nerves II-XII grossly intact, Motor Exam 5/5 strength throughout Psych/Mental Status: Normal Affect, Appropriate, Alert and oriented to time, place, person, mood and affect Vital Signs Temp Pulse Resp BP Pulse Ox 98.1 F 69 18 158/109 H 96 02/01/19 14:30 02/01/19 14:30 02/01/19 14:30 02/01/19 14:30 02/01/19 02:00 Oxygen Flow Rate (L/min) 2 Oxygen Delivery Method Room Air Weight: 270 lb 9.6 oz Body Mass Index (BMI) 49.4 Intake and Output for Last 24 Hours 01/30/19 01/31/19 02/01/19 23:59 23:59 23:59 Intake Total 2606 / 2606 4002 / 4002 Output Total 1575 / 1575 2500 / 2500 Balance 1031 / 1031 1502 / 1502 Medical Necessity - Tobacco Use Smoking Status: Never smoker Assessment/Plan All Active Problems (Last Updated 01/29/19 @ 16:24 by Elisa Childress MD) Hypothyroid in , antepartum (Acute) 36 weeks gestation of (Acute) Malaise (Acute) Nausea & vomiting (Acute) Headache (Acute) This is a 53 years old female patient [facility] for preeclampsia, underwent urgent section and I am seeing this patient in consultation for medical management for uncontrolled hypertension. #1 status post section: This was done for preeclampsia, postoperative day 2. Stable, BRIM BUSTER is managing. #2 uncontrolled hypertension: Chart reviewed, blood pressure started to go up today, it was up to 170 systolic when I saw the patient. Previously, it was around 1 50-1 60 systolic. Patient was started back on labetalol 400 3 times daily today and started on Procardia. She is asymptomatic. Recommend EKG, continue current dose of labetalol and Procardia, start IV hydralazine PRN every 4 hours for systolic more than 160. #3 hypothyroidism: Continue levothyroxine. #4 DVT prophylaxis: Low risk patient, no prophylaxis indicated. This note was generated with [employer] dictation software. It may contain incorrect words, spelling, and punctuation that were not noted in checking the note before signing. Code Visit Inpatient E&M: 02197 Subs Hosp L2
--- NOTE | 2019-02-01 17:21 | PN_ITS ---
Subjective: Chief complaint: Medical consultation for uncontrolled hypertension. This patient underwent urgent section for preeclampsia on January 30, 2019 and she has been having difficulties controlling her blood pressure. At this time, she has no symptoms. She denied chest pain or shortness of breath. She denied headache, blurred vision. She denies dizziness or lightheadedness. She was on IV labetalol and and today, it was discontinued and was started on oral labetalol. Her blood pressure was up to 170 systolic. She is asymptomatic. - Physical Exam General: Alert, Cooperative HEENT: Atraumatic, PERRLA, EOMI, Normocephalic Oral: Moist Mucosa, No Gingival or Mucosal Lesions/ Ulcerations Neck: Supple, No JVD, Negative Carotid Bruits, Trachea Midline, Thyroid Normal Size and Texture Lungs: Clear to auscultation, Normal air movement, No rhonchi, No wheeze, No rales Cardiovascular: Regular rate, Regular Rhythm, Normal S1, Normal S2, No murmurs, PMI Normal Abdomen: Bowel Sounds Present, Soft, Non Tender, Non-Distended, No Hepato- splenomegaly, Obese Extremities: No clubbing, No cyanosis, Edema - Trace edema. Skin: No rashes, No breakdown Lymphatic: No Cervical, Supraclavicular, or Inguinal Adenopathy Neurological: Cranial nerves II-XII grossly intact, Motor Exam 5/5 strength throughout Psych/Mental Status: Normal Affect, Appropriate, Alert and oriented to time, place, person, mood and affect Vital Signs Temp Pulse Resp BP Pulse Ox 98.1 F 69 18 158/109 H 96 02/01/19 14:30 02/01/19 14:30 02/01/19 14:30 02/01/19 14:30 02/01/19 02:00 Oxygen Flow Rate (L/min) 2 Oxygen Delivery Method Room Air Weight: 270 lb 9.6 oz Body Mass Index (BMI) 49.4 Intake and Output for Last 24 Hours 01/30/19 01/31/19 02/01/19 23:59 23:59 23:59 Intake Total 2606 / 2606 4002 / 4002 Output Total 1575 / 1575 2500 / 2500 Balance 1031 / 1031 1502 / 1502 Medical Necessity - Tobacco Use Smoking Status: Never smoker Assessment/Plan All Active Problems (Last Updated 01/29/19 @ 16:24 by Elisa Childress MD) Hypothyroid in , antepartum (Acute) 36 weeks gestation of (Acute) Malaise (Acute) Nausea & vomiting (Acute) Headache (Acute) This is a 53 years old female patient admitted [facility] for preeclampsia, underwent urgent section and I am seeing this patient in consultation for medical management for uncontrolled hypertension. #1 status post section: This was done for preeclampsia, postoperative day 2. Stable, BUTTONHOLE MARKER is managing. #2 uncontrolled hypertension: Chart reviewed, blood pressure started to go up today, it was up to 170 systolic when I saw the patient. Previously, it was around 1 50-1 60 systolic. Patient was started back on labetalol 400 3 times daily today and started on Procardia. She is asymptomatic. Recommend EKG, continue current dose of labetalol and Procardia, start IV hydralazine PRN every 4 hours for systolic more than 160. #3 hypothyroidism: Continue levothyroxine. #4 DVT prophylaxis: Low risk patient, no prophylaxis indicated. This note was generated with [employer] dictation software. It may contain incorrect words, spelling, and punctuation that were not noted in checking the note before signing. Code Visit Inpatient E&M: 29477 Subs Hosp L2
[2019-02-01] MEDS: hydrALAZINE 20 MG/ML Vial 10 MG IV (17:49)
[2019-02-01] MEDS: cloNIDine HCl 0.1 MG Tablet PO (19:24)
[2019-02-02 04:25] VITALS: BP 144/84; PULSE 91; RESP 18; TEMP 36.4
[2019-02-02] MEDS: Labetalol 200 MG Tablet 400 MG PO ×3 (06:09→22:23)
[2019-02-02] MEDS: Senna/Docusate Sodium 1 Tablet PO (06:09)
[2019-02-02 06:12] VITALS: BP 133/88; PULSE 98; RESP 18; TEMP 37.1
[2019-02-02 08:50] VITALS: BP 147/96; PULSE 90; RESP 20; TEMP 36.8
--- NOTE | 2019-02-02 08:56 | PCM.PN.OB ---
Subjective: Denies CP, SOB, headaches or blurry vision. She feels well. - Physical Exam General: Alert, Oriented x3 Abdomen: Soft, Non Tender, Non-Distended - ff mid & below umb Extremities: No Calf Tenderness, Edema - trace Neurological: Cranial nerves II-XII grossly intact, Deep Tendon Reflexes 2+/4 and Symmetrical - assessed by RN while in room Psych/Mental Status: Normal Affect Vital Signs Temp Pulse Resp BP Pulse Ox 98.7 F 98 18 133/88 H 96 02/02/19 06:12 02/02/19 06:12 02/02/19 06:12 02/02/19 06:12 02/01/19 02:00 Oxygen Flow Rate (L/min) 2 Oxygen Delivery Method Room Air Weight: 270 lb 9.6 oz Body Mass Index (BMI) 49.4 Intake and Output for Last 24 Hours 01/31/19 02/01/19 02/02/19 23:59 23:59 23:59 Intake Total 4002 / 4002 Output Total 2500 / 2500 Balance 1502 / 1502 Medical Necessity - Tobacco Use Smoking Status: Never smoker Assessment/Plan All Active Problems (Last Updated 01/29/19 @ 16:24 by Elisa Childress MD) Hypothyroid in , antepartum (Acute) 36 weeks gestation of (Acute) Malaise (Acute) Nausea & vomiting (Acute) Headache (Acute) POD#3 Chtn with preE - s/p magnesium for 24hours. BP's now better controlled with nifedipine XL in addition to the labetalol. Appreciate medicine consult for chtn. Will continue to monitor BP's & adjust meds as needed. Routine care & likely d/c tomorrow.
[2019-02-02] MEDS: Levothyroxine 75 MCG Tablet PO (09:09)
[2019-02-02] MEDS: NIFEdipine 30 MG Tablet PO (10:31)
[2019-02-02] MEDS: Citalopram 20 MG Tablet PO (10:31)
--- NOTE | 2019-02-02 12:03 | PCM.PN.HOSP ---
Subjective: Doing well, no lightheadedness or dizziness or blurry vision. She denies any chest pain or shortness of breath Vitals/I&O's: Vital Signs Temp Pulse Resp BP Pulse Ox 98.2 F 90 20 H 147/96 H 96 02/02/19 08:50 02/02/19 08:50 02/02/19 08:50 02/02/19 08:50 02/01/19 02:00 Oxygen Flow Rate (L/min) 2 Oxygen Delivery Method Room Air Weight: 270 lb 9.6 oz Body Mass Index (BMI) 49.4 Intake and Output for Last 24 Hours 01/31/19 02/01/19 02/02/19 23:59 23:59 23:59 Intake Total 4002 / 4002 Output Total 2500 / 2500 Balance 1502 / 1502 General: Alert, Oriented x3, Cooperative, No apparent distress HEENT: Atraumatic, PERRLA, EOMI, Normocephalic Oral: Moist Mucosa Neck: Supple, No JVD Lungs: Clear to auscultation, Normal air movement, No rhonchi, No wheeze, No rales Cardiovascular: Regular rate, Regular Rhythm, Normal S1, Normal S2, No murmurs Abdomen: Soft, Non Tender, Non-Distended, No Hepato-splenomegaly Extremities: No edema, Capillary Refill Less than 3 Seconds Skin: No rashes, No breakdown Neurological: Neuro grossly intact, Sensory exam intact to light touch and pain Psych/Mental Status: Normal Affect, Appropriate Current Medications Acetaminophen (Tylenol) 1,000 mg PO Q8H PRN PRN Reason: MILD PAIN (1-3/10) Last Admin: 02/01/19 14:07 Dose: 1,000 mg Bisacodyl (Dulcolax) 10 mg RECTAL UD PRN PRN Reason: If no BM Citalopram Hydrobromide (Celexa) 20 mg PO DAILY CHRISTIE Last Admin: 02/02/19 10:31 Dose: 20 mg Hydralazine HCl (Apresoline Iv) 10 mg IV Q4H PRN PRN PRN Reason: for SBP>160 Last Admin: 02/01/19 17:49 Dose: 10 mg Hydrocortisone (Hytone) 1 applic TOPICAL TID PRN PRN; Protocol PRN Reason: Discomfort Ibuprofen (Motrin) 600 mg PO Q6H PRN PRN PRN Reason: Mild Pain (1-3/10) Labetalol HCl (Trandate) 400 mg PO TID [facility] Last Admin: 02/02/19 06:09 Dose: 400 mg Levothyroxine Sodium (Synthroid) 75 mcg PO DAILY@0600 [facility] Last Admin: 02/02/19 09:09 Dose: 75 mcg Methylergonovine Maleate (Methergine) 0.2 mg IM X1 PRN PRN Reason: Bleeding Nalbuphine HCl (Nubain) 5 mg IV Q3H PRN PRN PRN Reason: itching Nifedipine (Procardia Xl) 30 mg PO DAILY [facility] Last Admin: 02/02/19 10:31 Dose: 30 mg Oxycodone HCl (Oxyir) 5 - 10 mg PO Q4H PRN PRN PRN Reason: MOD-SEVERE PAIN (4-10/10) Multivit/Folic Acid/Iron (Prenatabs Fa) 1 tablet PO DAILY [facility] Last Admin: 02/02/19 10:37 Dose: Not Given Senna/Docusate Sodium (Senokot-S, Dionne-Colace) 0 tablet PO DAILY PRN PRN Reason: Constipation Last Admin: 02/02/19 06:09 Dose: 2 tablet Simethicone (Mylicon) 80 mg PO PCHS PRN PRN Reason: Indigestion/stomach pain Medical Necessity - Tobacco Use Smoking Status: Never smoker Assessment/Plan All Active Problems (Last Updated 01/29/19 @ 16:24 by Elisa Childress MD) Hypothyroid in , antepartum (Acute) 36 weeks gestation of (Acute) Malaise (Acute) Nausea & vomiting (Acute) Headache (Acute) 1. Preeclampsia postop day 3/hypertension -Management per CARB[employer] ROD INSERTER -Pain control as needed -She is on labetalol p.o. and Procardia and her blood pressure has significantly improved after delivery -SBP is sitting in the 130s to 140s and she has hydralazine ordered as needed -We will obtain a BMP in the morning to monitor renal function and if it is okay and she still needs something for coverage of her blood pressures will provide lisinopril 2. Hypothyroidism -Stable -continue with Synthroid DVT: Ambulation Code Visit Inpatient E&M: 95462 Subs Hosp L2
--- NOTE | 2019-02-02 12:07 | PN_ITS ---
Subjective: Doing well, no lightheadedness or dizziness or blurry vision. She denies any chest pain or shortness of breath Vitals/I&O's: Vital Signs Temp Pulse Resp BP Pulse Ox 98.2 F 90 20 H 147/96 H 96 02/02/19 08:50 02/02/19 08:50 02/02/19 08:50 02/02/19 08:50 02/01/19 02:00 Oxygen Flow Rate (L/min) 2 Oxygen Delivery Method Room Air Weight: 270 lb 9.6 oz Body Mass Index (BMI) 49.4 Intake and Output for Last 24 Hours 01/31/19 02/01/19 02/02/19 23:59 23:59 23:59 Intake Total 4002 / 4002 Output Total 2500 / 2500 Balance 1502 / 1502 General: Alert, Oriented x3, Cooperative, No apparent distress HEENT: Atraumatic, PERRLA, EOMI, Normocephalic Oral: Moist Mucosa Neck: Supple, No JVD Lungs: Clear to auscultation, Normal air movement, No rhonchi, No wheeze, No rales Cardiovascular: Regular rate, Regular Rhythm, Normal S1, Normal S2, No murmurs Abdomen: Soft, Non Tender, Non-Distended, No Hepato-splenomegaly Extremities: No edema, Capillary Refill Less than 3 Seconds Skin: No rashes, No breakdown Neurological: Neuro grossly intact, Sensory exam intact to light touch and pain Psych/Mental Status: Normal Affect, Appropriate Current Medications Acetaminophen (Tylenol) 1,000 mg PO Q8H PRN PRN Reason: MILD PAIN (1-3/10) Last Admin: 02/01/19 14:07 Dose: 1,000 mg Bisacodyl (Dulcolax) 10 mg RECTAL UD PRN PRN Reason: If no BM Citalopram Hydrobromide (Celexa) 20 mg PO DAILY [facility]IE Last Admin: 02/02/19 10:31 Dose: 20 mg Hydralazine HCl (Apresoline Iv) 10 mg IV Q4H PRN PRN PRN Reason: for SBP>160 Last Admin: 02/01/19 17:49 Dose: 10 mg Hydrocortisone (Hytone) 1 applic TOPICAL TID PRN PRN; Protocol PRN Reason: Discomfort Ibuprofen (Motrin) 600 mg PO Q6H PRN PRN PRN Reason: Mild Pain (1-3/10) Labetalol HCl (Trandate) 400 mg PO TID [facility] Last Admin: 02/02/19 06:09 Dose: 400 mg Levothyroxine Sodium (Synthroid) 75 mcg PO DAILY@0600 [facility] Last Admin: 02/02/19 09:09 Dose: 75 mcg Methylergonovine Maleate (Methergine) 0.2 mg IM X1 PRN PRN Reason: Bleeding Nalbuphine HCl (Nubain) 5 mg IV Q3H PRN PRN PRN Reason: itching Nifedipine (Procardia Xl) 30 mg PO DAILY [facility] Last Admin: 02/02/19 10:31 Dose: 30 mg Oxycodone HCl (Oxyir) 5 - 10 mg PO Q4H PRN PRN PRN Reason: MOD-SEVERE PAIN (4-10/10) Multivit/Folic Acid/Iron (Prenatabs Fa) 1 tablet PO DAILY [facility] Last Admin: 02/02/19 10:37 Dose: Not Given Senna/Docusate Sodium (Senokot-S, Dionne-Colace) 0 tablet PO DAILY PRN PRN Reason: Constipation Last Admin: 02/02/19 06:09 Dose: 2 tablet Simethicone (Mylicon) 80 mg PO PCHS PRN PRN Reason: Indigestion/stomach pain Medical Necessity - Tobacco Use Smoking Status: Never smoker Assessment/Plan All Active Problems (Last Updated 01/29/19 @ 16:24 by Elisa Childress MD) Hypothyroid in , antepartum (Acute) 36 weeks gestation of (Acute) Malaise (Acute) Nausea & vomiting (Acute) Headache (Acute) 1. Preeclampsia postop day 3/hypertension -Management per SUPERVISOR DISPLAY FABRICATION -Pain control as needed -She is on labetalol p.o. and Procardia and her blood pressure has significantly improved after delivery -SBP is sitting in the 130s to 140s and she has hydralazine ordered as needed -We will obtain a BMP in the morning to monitor renal function and if it is okay and she still needs something for coverage of her blood pressures will provide lisinopril 2. Hypothyroidism -Stable -continue with Synthroid DVT: Ambulation Code Visit Inpatient E&M: 92635 Subs Hosp L2
[2019-02-02] MEDS: 0.9% Saline Lock 10 ML Syringe IV (13:38)
[2019-02-02 13:45] VITALS: BP 144/91; PULSE 102; TEMP 37.1; O2SAT 99
--- NOTE | 2019-02-02 16:34 | CASEMGMT ---
Social Work Labor and Delivery Unit Initial assessment Date of intervention: 02.02.2019 Time of intervention: 1230 Referral source: Social work identification. Reason for referral: baby admitted to [facility]; maternal history of anxiety and fertility issues. ? History obtained from:?Medical record and patient/mother of baby (MOB) Erin Christopher. ??Educated MOB that this check writer salesperson is the psychotherapist social worker for hospital of delivery and for continuity of care of families on the [facility], also follow families while admitted to the [facility] ? Household composition:?MOB and father of baby (FOB) Prashanth Christopher. ??MOB reports home situation is safe and adequate. ? Patient's parent/guardian status:?MOB is 31 years old and FOB 38 years old, since 07.08.2016. ?Baby Phoebe is the first child for both. ??MOB denies any safety issues or history of violence in relationship with FOB. ? ? Medical History:?MOB is G1, P0 to 1 after delivering Phoebe. ??MOB with history of PCOS, and developed HTN during . ??Infertility issues present for this family, with conception occurring after one round of IUI. ??Baby delivered at 37 weeks gestation. ?5 pounds 6 ounces at . ?Apgars 7-8-9 at 1-5-10 minutes respectively of life. ? Educational Status:??MOB is college educated. ??No issues with reading, writing, or learning comprehension. ? Health Care Coverage:?[employer] ? Financial Status:?Both parents are gainfully employed. ?MOB works for the [employer]. ??FOB works for [employer]. ?? Childcare/Caregiver(s):?MOB and FOB. ?Parents are looking at options for childcare for when parents return to work. ? ? Transportation:?No issues. ? Programs/Agencies Involved:?None reported or indicated as a need. ?Declines a [facility] referral but accepting of information offered. ? Behavioral Health Issues:?MOB reports history of anxiety and has been treated with Celexa during this . MOB reports this medicine is working well and plans to stay on this in the period. ?MOB reports to have a sister with history of depression, so is familiar with this diagnosis and risk for self. ?MOB reports she and FOB have done reading on the topic, and feel prepared as to what to look for. ?No reports or indication of any substance use issues. ???Maternal drug screen negative on 08.08.2018. ??? Family Stressors:?No identified stressors currently. ?MOB and FOB with history of infertility issues and went through IUI for conception of Phoebe. ??At the time of parents finding out about , they also purchased a home and moved. ? Support Systems:?MOB identified FOB, and then both MOB and FOB have families in the area who are supportive and willing to help out.? ? Assessment MOB pleasant, engaging in conversation with psychotherapist social worker, held good eye contact, mood and affect appropriate. ??MOB attentive to baby during social work visit, handled gently, talked to baby, and worked on feeding. ??MOB reports to have adequate support at home going, to have needed infant supplies including a safe sleep space, and plans to remain on antidepressant in the period. ?FOB joined conversation near the end and presented as supportive to MOB in maintain mental health. ?FOB will have all of next week off to help out, and then MOB's mother will stay with the family for a couple of days post discharge, just to help with transition home. ??MOB and FOB accepting of community resource lists, depression packet, and [facility] information for home going. ?? ? Plan MOB will discharge home when medically stable. Social work remains available to family for duration of baby's stay on the [facility] Community resource information in place. ? ? Response to Plan: MOB?does express understanding of proposed plan. ? WADE Bray-
[2019-02-02 22:00] VITALS: BP 143/89; PULSE 100; RESP 18; TEMP 36.8
[2019-02-03] VITALS (8 sets, daily range): BP systolic 149–156; BP diastolic 86–112; PULSE 90–97; RESP 18–20; TEMP 36.4–36.8; O2SAT 98
--- NOTE | 2019-02-03 05:46 | DCINST_ITS ---
Discharge Diet: No Restrictions Discharge Activity: Return to Normal Activity, May Not Drive - for 2 weeks, May not drive while taking narcotic pain medications., May Shower, May Take a Tub Bath - in 7 days. May resume sexual activity in: 4-6 weeks Lifting Restrictions: 20 pounds Additional Activity Instructions:: Nothing in the vagina for 4-6 weeks. You may return to work/school in 6 weeks. Call your doctor if your incision/area has: Continuous Slow Oozing, Sudden Increased Bleeding, Increased Pain/ Swelling, Increased Redness, Foul Smelling Discharge Call your doctor if you observe: Fever of 101 or Higher, Using more than one pad per hour - for 2 hours Suture Line Care: Avoid Pulling/Pushing, Avoid Pinching/Bending Cleanse incision/area with: Keep Dressing Clean & Dry Additional Instructions: If you experience any of the following, contact your healthcare provider. * Bleeding that soaks a pad every hour for 2 hours * Fever 100.4 or higher * Unrelieved incision or abdominal pain * Swelling, redness, discharge or bleeding from your incision or episiotomy site * Your incision begins to separate * Problems urinating (including inability to urinate or burning while urinating). * Visual changes * Severe headache * Flu-like symptoms * Pain or redness in one of both of your breasts * Pain, warmth, tenderness or swelling in your legs, especially the calf area * Frequent nausea and vomiting * Symptoms of depression or anxiety If you experience any of the following, call 911 or go to the nearest Emergency Room. * Chest pain * Problems breathing * Seizure activity * Partial or complete paralysis of a body part, slurred speech, weakness or drooping of the face, or a sudden inability to walk or hold your balance Allergies/Adverse Reactions: Allergies amoxicillin [Amoxicillin] Allergy (Verified 01/29/19 21:02) Rash Iodinated Contrast- Oral and IV Dye [DYEE] Allergy (Verified 01/29/19 21:02) Anaphylaxis codeine Adverse Reaction (Verified 01/29/19 21:02) Upset Stomach erythromycin base [Erythromycin Base] Adverse Reaction (Verified 01/29/19 21:02) Vomiting Medications to take at Discharge Citalopram [Celexa] 20 mg PO DAILY 01/24/17 Levothyroxine [Synthroid] 75 mcg PO DAILY 06/21/18 Vits [Prenatabs FA ] 1 tablet PO DAILY 01/08/19 Tums 1 tab.chew PO PRN PRN 01/12/19 Docusate Sodium [Colace] 100 mg PO BID PRN PRN #60 capsule 02/03/19 Ibuprofen [Motrin] 600 mg PO Q6H PRN #60 tablet 02/03/19 Labetalol [Trandate (Beta Gisella)] 400 mg PO TID #30 tablet 02/03/19 Oxycodone HCl/Acetaminophen [Percocet 5-325] 1 - 2 tablet PO Q8 PRN 7 Days #28 tablet 02/03/19 The following prescriptions were given: Docusate Sodium [Colace] 100 mg PO BID PRN PRN #60 capsule PRN Reason: Constipation Oxycodone HCl/Acetaminophen [Percocet 5-325] 1 - 2 tablet PO Q8 PRN 7 Days #28 tablet PRN Reason: Moderate-Severe pain Ibuprofen [Motrin] 600 mg PO Q6H PRN #60 tablet PRN Reason: Pain Labetalol [Trandate (Beta Gisella)] 400 mg PO TID #30 tablet Follow-Up: Call to make an appointment with your doctor for an incision check in 1-2 weeks. You will also need a 6 week post- follow up appointment. Test results from this visit will be discussed in further detail at your follow- up appointment, if applicable. Please Follow Up With: Lewis Houston - Call to make an appointment for an incision check in 1-2 [phone] When: You will need a post check in 6 weeks. Please Follow Up With: Palomo Saucedo III, MD - [phone] When: 2-4 weeks for your blood pressure Primary Care Physician: Palomo Saucedo III, MD [Primary Care Provider] - Proposed Discharge Date: 02/03/19
[2019-02-03] MEDS: Labetalol 200 MG Tablet 400 MG PO ×2 (06:19→14:01)
--- NOTE | 2019-02-03 06:22 | PCM.PN.OB ---
Subjective: Pain well controlled, average lochia. Denies headache or visual changes. Patient states she is not taking oxycodone for pain control. - Physical Exam General: Alert, Cooperative, No apparent distress Abdomen: Soft, Non-Distended, Obese, Tender - Appropriately Skin: Incision - Bandages clean dry and intact Neurological: - - no clonus, 2 + DTRs, 1+ edema Vital Signs Temp Pulse Resp BP Pulse Ox 98.0 F 94 18 150/95 H 99 02/03/19 03:00 02/03/19 03:00 02/03/19 03:00 02/03/19 03:00 02/02/19 13:45 Oxygen Flow Rate (L/min) 2 Oxygen Delivery Method Room Air Weight: 122.742 kg Body Mass Index (BMI) 49.4 Laboratory Tests Past 24 Hrs 02/03/19 06:10 Sodium Pending Potassium Pending Chloride Pending Carbon Dioxide Pending Anion Gap Pending BUN Pending Creatinine Pending Est GFR (MDRD) Af Amer Pending Est GFR (MDRD) Non-Af Pending BUN/Creatinine Ratio Pending Glucose Pending Calcium Pending Medical Necessity - Tobacco Use Smoking Status: Never smoker Assessment/Plan All Active Problems (Last Updated 01/29/19 @ 16:24 by Elisa Childress MD) Hypothyroid in , antepartum (Acute) 36 weeks gestation of (Acute) Malaise (Acute) Nausea & vomiting (Acute) Headache (Acute) Postoperative day #4 status post primary section for gestational hypertension. is in the special care nursery and doing well today but not ready for discharge Patient's blood pressure is much better control overnight. Will DC home with prescriptions for Procardia to continue along with labetalol and follow-up in the office in 3 to 5 days after discharge or as needed if symptoms of preeclampsia. Patient understands and agrees with plan
[2019-02-03 06:39] LABS: Anion Gap 8 (5-15); BUN 10 mg/dL (7-18); BUN/Creat Ratio 15.9 RATIO (10-20); Calcium,Total 8.6 mg/dL (8.5-10.1); Chloride 110 mmol/L (98-107); Creatinine, Serum 0.63 mg/dL (0.55-1.02); EST Glomerular Filtration Rate 117 mL/min (>60); Est Glom Filt Rate - Afr Amer 141 mL/min (>60); Estimated Creatinine Clearance 102.33 ml/min; Glucose 82 mg/dL (74-106); Potassium 3.7 mmol/L (3.5-5.1); Sodium Level 140 mmol/L (136-145)
--- NOTE | 2019-02-03 08:37 | PCM.PN.HOSP ---
Subjective: Feels great, denies any headaches or blurry vision. She has not gotten any lightheadedness or dizziness with her 2 different blood pressure medications however her systolic blood pressures are still in the 140s to 150s. Vitals/I&O's: Vital Signs Temp Pulse Resp BP Pulse Ox 98.0 F 94 18 150/95 H 99 02/03/19 03:00 02/03/19 03:00 02/03/19 03:00 02/03/19 03:00 02/02/19 13:45 Oxygen Flow Rate (L/min) 2 Oxygen Delivery Method Room Air Weight: 270 lb 9.6 oz Body Mass Index (BMI) 49.4 General: Alert, Oriented x3, Cooperative, No apparent distress HEENT: Atraumatic, PERRLA, EOMI, Normocephalic Oral: Moist Mucosa Neck: Supple, No JVD Lungs: Clear to auscultation, Normal air movement, No rhonchi, No wheeze, No rales Cardiovascular: Regular rate, Regular Rhythm, Normal S1, Normal S2, No murmurs Abdomen: Soft, Non Tender, Non-Distended, No Hepato-splenomegaly Extremities: No edema, Capillary Refill Less than 3 Seconds Skin: No rashes, No breakdown Neurological: Neuro grossly intact, Sensory exam intact to light touch and pain Psych/Mental Status: Normal Affect, Appropriate Laboratory Results 02/03/19 06:10: Sodium 140, Potassium 3.7, Chloride 110 H, Carbon Dioxide 22.0, Anion Gap 8, BUN 10, Creatinine 0.63, Estim Creat Clear Calc 102.33, Est GFR (MDRD) Af Amer 141, Est GFR (MDRD) Non-Af 117, BUN/Creatinine Ratio 15.9, Glucose 82, Calcium 8.6 Current Medications Acetaminophen (Tylenol) 1,000 mg PO Q8H PRN PRN Reason: MILD PAIN (1-11/26) Last Admin: 02/01/19 14:07 Dose: 1,000 mg Bisacodyl (Dulcolax) 10 mg RECTAL UD PRN PRN Reason: If no BM Citalopram Hydrobromide (Celexa) 20 mg PO DAILY [facility]RISTIE Last Admin: 02/02/19 10:31 Dose: 20 mg Hydralazine HCl (Apresoline Iv) 10 mg IV Q4H PRN PRN PRN Reason: for SBP>160 Last Admin: 02/01/19 17:49 Dose: 10 mg Hydrocortisone (Hytone) 1 applic TOPICAL TID PRN PRN; Protocol PRN Reason: Discomfort Ibuprofen (Motrin) 600 mg PO Q6H PRN PRN PRN Reason: Mild Pain (1-310) Labetalol HCl (Trandate) 400 mg PO TID [facility] Last Admin: 02/03/19 06:19 Dose: 400 mg Levothyroxine Sodium (Synthroid) 75 mcg PO DAILY@0600 [facility] Last Admin: 02/02/19 09:09 Dose: 75 mcg Methylergonovine Maleate (Methergine) 0.2 mg IM X1 PRN PRN Reason: Bleeding Nalbuphine HCl (Nubain) 5 mg IV Q3H PRN PRN PRN Reason: itching Nifedipine (Procardia Xl) 30 mg PO DAILY [facility] Last Admin: 02/02/19 10:31 Dose: 30 mg Oxycodone HCl (Oxyir) 5 - 10 mg PO Q4H PRN PRN PRN Reason: MOD-SEVERE PAIN (-06/28) Multivit/Folic Acid/Iron (Prenatabs Fa) 1 tablet PO DAILY [facility] Last Admin: 02/02/19 10:37 Dose: Not Given Senna/Docusate Sodium (Senokot-S, Dionne-Colace) 0 tablet PO DAILY PRN PRN Reason: Constipation Last Admin: 02/02/19 06:09 Dose: 2 tablet Simethicone (Mylicon) 80 mg PO HS PRN PRN Reason: Indigestion/stomach pain Medical Necessity - Tobacco Use Smoking Status: Never smoker Assessment/Plan All Active Problems (Last Updated 01/29/19 @ 16:24 by Elisa Childress MD) Hypothyroid in , antepartum (Acute) 36 weeks gestation of (Acute) Malaise (Acute) Nausea & vomiting (Acute) Headache (Acute) 1. Preeclampsia postop day 3/hypertension -Management per MAINTENANCE MACHINE REPAIRER -Pain control as needed -She is on labetalol p.o. and Procardia and her blood pressure has significantly improved after delivery -SBP is sitting in the 140s to 150s and she has hydralazine ordered as needed -BMP today with a normal creatinine, therefore we will start her on lisinopril 5 mg daily. I do anticipate that her blood pressure should improve over the next several months after delivery. She will need to follow-up in 1 to 2 weeks with her primary care physician to obtain a BMP to monitor renal function while on lisinopril. We did discuss that if she were to get lightheaded or dizzy that it is okay to stop the lisinopril and follow-up with her doctor to evaluate her blood pressure. -Okay to DC from medicine point of view 2. Hypothyroidism -Stable -continue with Synthroid DVT: Ambulation Code Visit Inpatient E&M: 40283 Subs Hosp L2
--- NOTE | 2019-02-03 08:41 | PN_ITS ---
Subjective: Feels great, denies any headaches or blurry vision. She has not gotten any lightheadedness or dizziness with her 2 different blood pressure medications however her systolic blood pressures are still in the 140s to 150s. Vitals/I&O's: Vital Signs Temp Pulse Resp BP Pulse Ox 98.0 F 94 18 150/95 H 99 02/03/19 03:00 02/03/19 03:00 02/03/19 03:00 02/03/19 03:00 02/02/19 13:45 Oxygen Flow Rate (L/min) 2 Oxygen Delivery Method Room Air Weight: 270 lb 9.6 oz Body Mass Index (BMI) 49.4 General: Alert, Oriented x3, Cooperative, No apparent distress HEENT: Atraumatic, PERRLA, EOMI, Normocephalic Oral: Moist Mucosa Neck: Supple, No JVD Lungs: Clear to auscultation, Normal air movement, No rhonchi, No wheeze, No rales Cardiovascular: Regular rate, Regular Rhythm, Normal S1, Normal S2, No murmurs Abdomen: Soft, Non Tender, Non-Distended, No Hepato-splenomegaly Extremities: No edema, Capillary Refill Less than 3 Seconds Skin: No rashes, No breakdown Neurological: Neuro grossly intact, Sensory exam intact to light touch and pain Psych/Mental Status: Normal Affect, Appropriate Laboratory Results 02/03/19 06:10: Sodium 140, Potassium 3.7, Chloride 110 H, Carbon Dioxide 22.0, Anion Gap 8, BUN 10, Creatinine 0.63, Estim Creat Clear Calc 102.33, Est GFR (MDRD) Af Amer 141, Est GFR (MDRD) Non-Af 117, BUN/Creatinine Ratio 15.9, Glucose 82, Calcium 8.6 Current Medications Acetaminophen (Tylenol) 1,000 mg PO Q8H PRN PRN Reason: MILD PAIN (1-11/26) Last Admin: 02/01/19 14:07 Dose: 1,000 mg Bisacodyl (Dulcolax) 10 mg RECTAL UD PRN PRN Reason: If no BM Citalopram Hydrobromide (Celexa) 20 mg PO DAILY [facility]STIE Last Admin: 02/02/19 10:31 Dose: 20 mg Hydralazine HCl (Apresoline Iv) 10 mg IV Q4H PRN PRN PRN Reason: for SBP>160 Last Admin: 02/01/19 17:49 Dose: 10 mg Hydrocortisone (Hytone) 1 applic TOPICAL TID PRN PRN; Protocol PRN Reason: Discomfort Ibuprofen (Motrin) 600 mg PO Q6H PRN PRN PRN Reason: Mild Pain (1-310) Labetalol HCl (Trandate) 400 mg PO TID [facility] Last Admin: 02/03/19 06:19 Dose: 400 mg Levothyroxine Sodium (Synthroid) 75 mcg PO DAILY@0600 [facility] Last Admin: 02/02/19 09:09 Dose: 75 mcg Methylergonovine Maleate (Methergine) 0.2 mg IM X1 PRN PRN Reason: Bleeding Nalbuphine HCl (Nubain) 5 mg IV Q3H PRN PRN PRN Reason: itching Nifedipine (Procardia Xl) 30 mg PO DAILY [facility] Last Admin: 02/02/19 10:31 Dose: 30 mg Oxycodone HCl (Oxyir) 5 - 10 mg PO Q4H PRN PRN PRN Reason: MOD-SEVERE PAIN (-06/28) Multivit/Folic Acid/Iron (Prenatabs Fa) 1 tablet PO DAILY [facility] Last Admin: 02/02/19 10:37 Dose: Not Given Senna/Docusate Sodium (Senokot-S, Dionne-Colace) 0 tablet PO DAILY PRN PRN Reason: Constipation Last Admin: 02/02/19 06:09 Dose: 2 tablet Simethicone (Mylicon) 80 mg PO HS PRN PRN Reason: Indigestion/stomach pain Medical Necessity - Tobacco Use Smoking Status: Never smoker Assessment/Plan All Active Problems (Last Updated 01/29/19 @ 16:24 by Elisa Childress MD) Hypothyroid in , antepartum (Acute) 36 weeks gestation of (Acute) Malaise (Acute) Nausea & vomiting (Acute) Headache (Acute) 1. Preeclampsia postop day 3/hypertension -Management per BROADCAST TRAFFIC COORDINATOR -Pain control as needed -She is on labetalol p.o. and Procardia and her blood pressure has significantly improved after delivery -SBP is sitting in the 140s to 150s and she has hydralazine ordered as needed -BMP today with a normal creatinine, therefore we will start her on lisinopril 5 mg daily. I do anticipate that her blood pressure should improve over the next several months after delivery. She will need to follow-up in 1 to 2 weeks with her primary care physician to obtain a BMP to monitor renal function while on lisinopril. We did discuss that if she were to get lightheaded or dizzy that it is okay to stop the lisinopril and follow-up with her doctor to evaluate her blood pressure. -Okay to DC from medicine point of view 2. Hypothyroidism -Stable -continue with Synthroid DVT: Ambulation Code Visit Inpatient E&M: 06254 Subs Hosp L2
[2019-02-03] MEDS: Levothyroxine 75 MCG Tablet PO (08:42)
[2019-02-03] MEDS: Prenatal Vits Tablet 1 TABLET PO (10:35)
[2019-02-03] MEDS: Citalopram 20 MG Tablet PO (10:35)
[2019-02-03] MEDS: NIFEdipine 30 MG Tablet PO (10:43)
[2019-02-03] MEDS: Lisinopril 5 MG Tablet PO (12:26)
--- NOTE | 2019-02-03 12:39 | NURSING ---
Dr Jaeger called and informed that pt does not have prescription for procardia 30 mg XL called to pharmacy for discharge and it wasn't noted on discharge instructions and wanted to verify that she wants pt to continue taking it on discharge. Dr Jaeger does want pt to continue taking it after discharge and Dr Jaeger will call prescription to [facility] pharmacy in [place]. Informed of pts last BP of 153/95 prior to giving lisinopril at 1226.
--- NOTE | 2019-02-03 17:56 | PCM.DC.SUM ---
Discharge Date and Diagnosis Date of Admission: 01/29/19 Date of Discharge: 02/03/19 - Secondary Discharge Diagnosis Chronic Problems (Last Updated 01/29/19 @ 16:24 by Elisa Childress MD) Chronic hypertension affecting (Chronic) Hospital Course and Treatment Operations: - - Primary low transverse section via Pfannenstiel skin incision Procedures: None Summary of Care Provided: The patient is a 33 year old female with conceived by intrauterine insemination presented for induction of labor. She underwent Cytotec cervical ripening. She her induction was performed for hypertension worsening throughout , 37-week high risk primigravida. She also has a history of acquired hypothyroidism, and maternal obesity with BMI 49. Her labetalol had had to be increased throughout the . In labor, her blood pressure spiked in the hypertensive protocol was initiated. In addition, she began to have late decelerations and had one prolonged deceleration, though her cervix was still unfavorable and she was not in labor and was remote from delivery. The decision was then made to proceed with a primary section for category 2 tracing remote from delivery with unfavorable cervix. Induction was started on 01/29/2019, and the was performed on the morning of 01/30/2019 without difficulty. Postoperatively, the patient did well. Her blood pressure started to elevate and she continued to be on labetalol 400 mg p.o. 3 times daily. On postoperative day number 2, she have significantly elevated blood pressures. A hospitalist consultation was ordered, and EKG was performed and labs were ordered. Patient was then placed on Procardia 30 XL daily. On postoperative day #4, her blood pressures continue to be elevated and the hospitalist service recommended adding lisinopril 5 mg daily. Evidence suggest that minimal absorption of TANESHA inhibitors occurs into the breastmilk and the decision was made that with an normal size term infant, this would be considered safe for breast-feeding. She was placed on this. She is to continue to monitor her blood pressures closely at home. She is to follow-up in the office in 3 to 5 days for blood pressure check or call or return for any symptoms of preeclampsia with severe features. Prescriptions for her blood pressure medications and routine pain prescriptions were given. By postoperative day #4, she is ambulating, urinating and tolerating regular diet without difficulty and was requiring minimal pain medicines. Other than her blood pressure issues, the patient did remarkably well. The infant was in the special care nursery for hypoglycemia. [] - Physical Exam Vital Signs Temp Pulse Resp BP Pulse Ox 98.2 F 90 18 152/101 H 98 02/03/19 14:00 02/03/19 14:00 02/03/19 14:00 02/03/19 14:00 02/03/19 14:00 Oxygen Flow Rate (L/min) 2 Oxygen Delivery Method Room Air Weight: 122.742 kg Body Mass Index (BMI) 49.4 Laboratory Tests Past 24 Hrs 02/03/19 06:10 Sodium 140 Potassium 3.7 Chloride 110 H Carbon Dioxide 22.0 Anion Gap 8 BUN 10 Creatinine 0.63 Estim Creat Clear Calc 102.33 Est GFR (MDRD) Af Amer 141 Est GFR (MDRD) Non-Af 117 BUN/Creatinine Ratio 15.9 Glucose 82 Calcium 8.6 Discharge Diet: No Restrictions Discharge Activity: Return to Normal Activity, May Not Drive - for 2 weeks, May not drive while taking narcotic pain medications., May Shower, May Take a Tub Bath - in 7 days. May resume sexual activity in: 4-6 weeks Additional Activity Instructions:: Nothing in the vagina for 4-6 weeks. You may return to work/school in 6 weeks. Call your doctor if your incision/area has: Continuous Slow Oozing, Sudden Increased Bleeding, Increased Pain/ Swelling, Increased Redness, Foul Smelling Discharge Call your doctor if you observe: Fever of 101 or Higher, Using more than one pad per hour - for 2 hours Suture Line Care: Avoid Pulling/Pushing, Avoid Pinching/Bending Cleanse incision/area with: Keep Dressing Clean & Dry Home Medications: Medications to take at Discharge Citalopram [Celexa] 20 mg PO DAILY 01/24/17 Levothyroxine [Synthroid] 75 mcg PO DAILY 06/21/18 Vits [Prenatabs FA ] 1 tablet PO DAILY 01/08/19 Tums 1 tab.chew PO PRN PRN 01/12/19 Docusate Sodium [Colace] 100 mg PO BID PRN PRN #60 capsule 02/03/19 Ibuprofen [Motrin] 600 mg PO Q6H PRN #60 tablet 02/03/19 Labetalol [Trandate (Beta Gisella)] 400 mg PO TID #30 tablet 02/03/19 Lisinopril [Prinivil] 5 mg PO DAILY #30 tab 02/03/19 Oxycodone HCl/Acetaminophen [Percocet 5-325] 1 - 2 tablet PO Q8 PRN 7 Days #28 tablet 02/03/19 Following Prescrptions Were Given to Patient: Docusate Sodium [Colace] 100 mg PO BID PRN PRN #60 capsule PRN Reason: Constipation Lisinopril [Prinivil] 5 mg PO DAILY #30 tab Oxycodone HCl/Acetaminophen [Percocet 5-325] 1 - 2 tablet PO Q8 PRN 7 Days #28 tablet PRN Reason: Moderate-Severe pain Ibuprofen [Motrin] 600 mg PO Q6H PRN #60 tablet PRN Reason: Pain Labetalol [Trandate (Beta Gisella)] 400 mg PO TID #30 tablet Primary Care Physician: Palomo Saucedo III, MD [Primary Care Provider] - Please Follow Up With: Lewis Houston When: You will need a post check in 6 weeks. Please Follow Up With: Palomo Saucedo III, MD When: 2-4 weeks for your blood pressure Medical Necessity - Tobacco Use Smoking Status: Never smoker Meaningful Use Info Meaningful Use Diagnoses (Choose all that apply): None applicable
--- NOTE | 2019-02-03 21:42 | NURSING ---
2041-dr hurtado on unit, made aware of all of pt bps, was up to scn seeing baby prior to taking first bp and pt was tearful/emotional. in to see pt. ok with discharge.
--- NOTE | 2019-02-03 21:43 | NURSING ---
2124-discharged to hotel status. reviewed discharge instructions. up to scn with and other family. plan for pt to go get dinner, and go home to sleep tonight.
== END 2019-02-03 23:00 | disposition home or self-care (01) | DRG 788 ==
PROVIDERS: Admitting Provider Obstetrics & Gynecology; Family Provider Family Medicine; PCP Family Medicine; Referring Provider Obstetrics & Gynecology; Visit Provider Family Medicine
DX: O60.14X0 Preterm labor third trimester with preterm delivery third trimester, not applicable or unspecified (principal); O14.94 Unspecified pre-eclampsia, complicating childbirth; O99.284 Endocrine, nutritional and metabolic diseases complicating childbirth; E03.9 Hypothyroidism, unspecified; O77.0 Labor and delivery complicated by meconium in amniotic fluid; O76 Abnormality in fetal heart rate and rhythm complicating labor and delivery; O99.214 Obesity complicating childbirth; E66.9 Obesity, unspecified; Z3A.37 37 weeks gestation of pregnancy; Z37.0 Single live birth; O13.5 Gestational [pregnancy-induced] hypertension without significant proteinuria, complicating the puerperium
CPT/HCPCS: 59025; 59050; 80048; 85025; 85027; 86850; 86900; 93005; 99218; J7120; A4216; G0378; J2405